=== PATIENT | male | born 1980 | race Caucasian/White ===

== ENCOUNTER 2022-07-02 10:46 | Inpatient (IN) | payer BC, MEDICAID ==
[2022-07-02] VITALS (34 sets, daily range): BP systolic 55–134; BP diastolic 16–101
[~2022-07-02] VITALS: Ht 177.8 cm; Wt 97.1 kg
[2022-07-02] MEDS ORDERED: PIPERACILLIN/TAZ 3.375G PREMIX 50 ML IV ONE (11:00)
[2022-07-02] MEDS ORDERED: ETOMIDATE 2MG/ML 10ML VIAL IV ONE (11:00)
[2022-07-02] MEDS ORDERED: VANCOMYCIN 1G PREMIX 200 ML IV ONE (11:00)
[2022-07-02] MEDS ORDERED: SUCCINYLCHOLINE CHLORIDE 200MG/10ML IV ONE (11:00)
[2022-07-02] MEDS ORDERED: PROPOFOL 10MG/ML 100ML 100 ML IV ONE (11:00)
[2022-07-02 11:12] LABS: HEMATOCRIT. 36.9 % (42.0-52.0); LYMPHOCYTES % 10.4 % (20.0-50.0); MEAN CORPUSCULAR HEMOGLOBIN 26.4 pg (28.0-32.0); MEAN CORPUSCULAR VOLUME 88.4 fL (80.0-94.0); MEAN PLATELET VOLUME 10.5 fl (7.4-10.4); MONOCYTES % 3.3 % (2.0-8.0); NEUTROPHILS % 85.3 % (40.0-76.0); PLATELET 182 x1000/uL (130-400); RED BLOOD CELL COUNT 4.17 mill/uL (4.7-6.1); RED CELL DISTRIBUTION WIDTH 16.9 % (11.6-14.6)
[2022-07-02 11:17] LABS: CHLORIDE 101 mEq/L (98-107)
[2022-07-02 11:26] LABS: INR 1.2; PROTHROMBIN TIME 12.5 sec (9.6-11.0)
[2022-07-02 11:27] LABS: CLARITY URINE CLOUDY (CLEAR); COLOR URINE YELLOW (YELLOW); KETONES URINE 2+ (NEGATIVE); LEUKOCYTE ESTERASE URINE 1+ (NEGATIVE); NITRITE URINE NEGATIVE (NEGATIVE); OCCULT BLOOD URINE 2+ (NEGATIVE); PH URINE 5.5 (4.5-8.0); PROTEIN URINE 3+ (NEGATIVE); SPECIFIC GRAVITY URINE 1.025 (1.005-1.030); UROBILINOGEN URINE 0.2 E.U./dL (0.2-1.0)
[2022-07-02] MEDS ORDERED: SODIUM CHLORIDE 0.9% 1000ML BAG (SEPSIS BOLUS) IV ONE (11:30)
[2022-07-02 11:31] LABS: BG BASE EXCESS -11.9 mmol/L (-2.0-2.0); BG CARBOXYHEMOGLOBIN 0.3 % (0.5-1.5); BG DEOXYHEMOGLOBIN 1.4 % (0.0-5.0); BG METHEMOGLOBIN 0.3 % (0.0-1.5); BG OXYGEN SATURATION 98.6 % (92.0-98.5); BG PCO2 37.6 mmHg (35.0-45.0); BG PH 7.218 (7.350-7.450); BG PO2 175.1 mmHg (75.0-100.0); BG SAMPLE SITE RIGHT RADIAL; BG TOTAL HEMOGLOBIN 11.2 g/dL (12.0-18.0); BG VENT MODE VENT - AC
[2022-07-02] MEDS ORDERED: NOREPINEPHRINE 8MG/250ML PMX 250 ML IV STA ×2 (11:33→11:52)
[2022-07-02] MEDS ORDERED: INSULIN REGULAR 100U/100ML PMX 100 ML IV SCH ×2 (11:45→20:00)
[2022-07-02] MEDS ORDERED: SODIUM BICARBONATE 8.4% 1 MEQ/ML 50ML SYR IV NR (12:15)
[2022-07-02] MEDS: INSULIN REGULAR 100U/100ML PMX 100 ML IV SCH ×4 (13:00→22:04)
[2022-07-02] MEDS ORDERED: NOREPINEPHRINE 8MG/250ML PMX 250 ML IV ONE (14:12)
[2022-07-02] MEDS ORDERED: INSULIN REGULAR (HUMULIN R) 300UNITS/3ML VIAL IV PRN (14:30)
[2022-07-02] MEDS ORDERED: DEXTROSE 50% WATER 50ML SYRINGE IV PRN (14:30)
[2022-07-02] MEDS ORDERED: PIPERACILLIN/TAZ 3.375G PREMIX 50 ML IV NR (15:00)
[2022-07-02] MEDS ORDERED: NOREPINEPHRINE 32 MG in DEXT 5% WATER 218 ML IV PRN (15:00)
[2022-07-02] MEDS ORDERED: PHENYLEPHRINE 100 MG in DEXT 5% WATER 240 ML IV PRN (15:00)
[2022-07-02] MEDS ORDERED: PROPOFOL 10MG/ML 100ML 100 ML IV NR (15:15)
[2022-07-02] MEDS: BLOOD SUGAR DIAGNOSTIC STRIP TEST SCH ×9 (15:30→23:00)
[2022-07-02] MEDS ORDERED: FENTANYL 2500MCG/250ML PMX 250 ML IV ONE (15:45)
[2022-07-02] MEDS ORDERED: VANCOMYCIN 1G PREMIX 200 ML IV SCH (16:00)
[2022-07-02] MEDS: SODIUM CHLORIDE 0.45% 1,000 ML IV SCH ×2 (16:15→18:43)
[2022-07-02 16:19] LABS: TOTAL IRON BINDING CAPACITY 224 ug/dL (250-450)
[2022-07-02] MEDS: PROPOFOL 10MG/ML 100ML 100 ML IV PRN ×2 (16:29→17:57)
[2022-07-02] MEDS: PHENYLEPHRINE 100 MG in DEXT 5% WATER 240 ML IV PRN ×2 (16:30→22:58)
[2022-07-02] MEDS: NOREPINEPHRINE 32 MG in DEXT 5% WATER 218 ML IV PRN (16:31)
[2022-07-02] MEDS: FENTANYL 2500MCG/250ML PMX 250 ML IV PRN (16:35)
[2022-07-02 17:14] LABS: BG BASE EXCESS -10.8 mmol/L (-2.0-2.0); BG CARBOXYHEMOGLOBIN 0.3 % (0.5-1.5); BG DEOXYHEMOGLOBIN 2.7 % (0.0-5.0); BG HCO3 ACT 13.3 mmol/L (22.0-26.0); BG METHEMOGLOBIN 0.4 % (0.0-1.5); BG OXYGEN SATURATION 97.3 % (92.0-98.5); BG OXYHEMOGLOBIN 96.6 % (94.0-97.0); BG PCO2 25.3 mmHg (35.0-45.0); BG PO2 107.9 mmHg (75.0-100.0); BG SAMPLE SITE RIGHT RADIAL; BG TOTAL HEMOGLOBIN 11.4 g/dL (12.0-18.0); BG VENT MODE VENT - AC
[2022-07-02] MEDS ORDERED: DEXTROSE 50% WATER 25ML (12.5GM) IV PRN (17:15)
[2022-07-02] MEDS ORDERED: MAGNESIUM/ALUMINUM HYDROXIDE/SIMETHICONE 30ML UDC PO PRN (17:30)
[2022-07-02] MEDS ORDERED: CLONIDINE 0.1MG TABLET PO PRN (17:30)
[2022-07-02] MEDS ORDERED: GUAIFENESIN 200MG/10ML SUGAR FREE UDC PO PRN (17:30)
[2022-07-02] MEDS ORDERED: HYDROCODONE/ACETAMINOPHEN 5/325MG TABLET PO PRN (17:30)
[2022-07-02] MEDS ORDERED: ACETAMINOPHEN 325MG TABLET PO PRN ×2 (17:30)
[2022-07-02] MEDS: VANCOMYCIN 1GM PMX (XELLIA) 200 ML IV SCH (17:59)
[2022-07-02] MEDS ORDERED: PIPERACILLIN/TAZOBACTAM 3.375 G in DEXTROSE 5% WATER 50 ML IV NR (18:00)
[2022-07-02] MEDS ORDERED: ASPI-1497 MT (18:36)
[2022-07-02] MEDS ORDERED: ATOR40TA70 MT (18:36)
[2022-07-02] MEDS ORDERED: BICT1TAB PO (18:39)
[2022-07-02] MEDS ORDERED: FAMO-135 MT (18:41)
[2022-07-02] MEDS: ENOXAPARIN 40MG/0.4ML SYR SUBCUT SCH (18:43)
[2022-07-02] MEDS ORDERED: METO100T16 PO (18:45)
[2022-07-02] MEDS ORDERED: KEPPSOL GT (18:45)
[2022-07-02] MEDS ORDERED: LISI20TA31 MT (18:45)
[2022-07-02] MEDS ORDERED: SENN-178 MT (18:45)
[2022-07-02 18:57] LABS: CHLORIDE 111 mEq/L (98-107)
[2022-07-02 19:03] LABS: PHOSPHORUS 2.3 mg/dL (2.5-4.9)
[2022-07-02] MEDS ORDERED: ACETAMINOPHEN 650MG SUPP PR PRN (19:15)
[2022-07-02] MEDS ORDERED: ACETAMINOPHEN 650MG/20.3ML UDC GT PRN (19:45)
[2022-07-02] MEDS ORDERED: POTASSIUM CHLORIDE INJ 40 MEQ in DEXT 5% WATER 250 ML IV NR (20:30)
[2022-07-02] MEDS: SODIUM CHL 0.45% + KCL 20MEQ/L 1,000 ML IV SCH (21:10)
[2022-07-02] MEDS ORDERED: PIPERACILLIN/TAZOBACTAM 3.375 G in DEXTROSE 5% WATER 50 ML IV SCH (22:00)
[2022-07-02] MEDS: PANTOPRAZOLE 40MG DR TABLET PO SCH (22:03)
[2022-07-02 22:17] LABS: CHLORIDE 112 mEq/L (98-107)
[2022-07-02 22:20] LABS: PHOSPHORUS 1.9 mg/dL (2.5-4.9)
[2022-07-02] MEDS: PIPERACILLIN/TAZOBACTAM 3.375 G in DEXTROSE 5% WATER 50 ML IV SCH (22:58)
[2022-07-02] MEDS: ONDANSETRON HCL 4MG/2ML INJ IV PRN (23:06)
[2022-07-02] MEDS ORDERED: MAGNESIUM 2 G PREMIX 50 ML IV NR (23:59)
[2022-07-03] VITALS (104 sets, daily range): BP systolic 65–201; BP diastolic 38–121
[2022-07-03] MEDS: BLOOD SUGAR DIAGNOSTIC STRIP TEST SCH ×23 (01:00→23:30)
[2022-07-03] MEDS: VANCOMYCIN 1GM PMX (XELLIA) 200 ML IV SCH ×2 (01:22→08:18)
[2022-07-03] MEDS: ACETAMINOPHEN 650MG/20.3ML UDC GT PRN ×4 (01:22→22:01)
[2022-07-03] MEDS: NOREPINEPHRINE 32 MG in DEXT 5% WATER 218 ML IV PRN ×3 (01:47→19:13)
[2022-07-03] MEDS: INSULIN REGULAR 100U/100ML PMX 100 ML IV SCH ×5 (02:01→20:25)
[2022-07-03] MEDS: KCL 20MEQ/100ML PREMIX 100 ML IV PRN ×3 (03:20→22:38)
[2022-07-03] MEDS: PROPOFOL 10MG/ML 100ML 100 ML IV PRN ×2 (05:56→14:03)
[2022-07-03] MEDS: PIPERACILLIN/TAZOBACTAM 3.375 G in DEXTROSE 5% WATER 50 ML IV SCH ×3 (05:57→21:28)
[2022-07-03 06:02] LABS: BASOPHILS % 0.2 % (0.0-2.0); HEMATOCRIT. 34.4 % (42.0-52.0); HEMOGLOBIN. 10.7 g/dL (14.0-18.0); LYMPHOCYTES % 11.7 % (20.0-50.0); MEAN CORPUSCULAR HEMOGLOBIN 27.1 pg (28.0-32.0); MEAN CORPUSCULAR VOLUME 87.2 fL (80.0-94.0); MEAN PLATELET VOLUME 10.8 fl (7.4-10.4); MONOCYTES % 4.4 % (2.0-8.0); NEUTROPHILS % 83.7 % (40.0-76.0); PLATELET 105 x1000/uL (130-400); RED BLOOD CELL COUNT 3.94 mill/uL (4.7-6.1); RED CELL DISTRIBUTION WIDTH 16.3 % (11.6-14.6)
[2022-07-03] MEDS: PHENYLEPHRINE 100 MG in DEXT 5% WATER 240 ML IV PRN ×4 (06:33→19:31)
[2022-07-03] MEDS: PANTOPRAZOLE 40MG DR TABLET PO SCH ×2 (06:49→21:28)
[2022-07-03] MEDS: ONDANSETRON HCL 4MG/2ML INJ IV PRN (06:49)
[2022-07-03] MEDS: DEXT 5%/0.45% NACL 1000ML 1,000 ML IV SCH ×4 (06:50→20:25)
[2022-07-03 06:53] LABS: PHOSPHORUS 3.3 mg/dL (2.5-4.9)
[2022-07-03] MEDS ORDERED: POTASSIUM CHLORIDE 20MEQ TABLET SR PO ONE (08:30)
[2022-07-03] MEDS ORDERED: VASOPRESSIN 20 UNIT in SODIUM CHLORIDE 0.9% 99 ML IV PRN (08:30)
[2022-07-03 08:58] LABS: BG BASE EXCESS -14.4 mmol/L (-2.0-2.0); BG CARBOXYHEMOGLOBIN 0.2 % (0.5-1.5); BG DEOXYHEMOGLOBIN 1.4 % (0.0-5.0); BG FRACTION INSPIRED OXYGEN 80; BG HCO3 ACT 11.1 mmol/L (22.0-26.0); BG METHEMOGLOBIN 0.6 % (0.0-1.5); BG OXYGEN SATURATION 98.6 % (92.0-98.5); BG OXYHEMOGLOBIN 97.8 % (94.0-97.0); BG PCO2 25.6 mmHg (35.0-45.0); BG PH 7.256 (7.350-7.450); BG PO2 180.1 mmHg (75.0-100.0); BG SAMPLE SITE RIGHT RADIAL; BG TOTAL HEMOGLOBIN 11.2 g/dL (12.0-18.0); BG VENT MODE VENT - AC
[2022-07-03] MEDS ORDERED: POTASSIUM CHLORIDE 20MEQ/PACKET PEG NR (09:00)
[2022-07-03] MEDS: IPRATROPIUM/ALBUTEROL 0.5-3(2.5)MG/3ML NEB NEB PRN (09:26)
[2022-07-03] MEDS ORDERED: SODIUM BICARBONATE 8.4% 1 MEQ/ML 50ML SYR IV SCH (11:00)
[2022-07-03] MEDS: SODIUM CHL 0.45% + KCL 20MEQ/L 1,000 ML IV SCH ×5 (14:01→22:02)
[2022-07-03] MEDS: ENOXAPARIN 40MG/0.4ML SYR SUBCUT SCH (17:28)
[2022-07-03] MEDS ORDERED: MAGNESIUM 1 G PREMIX 100 ML IV NR (20:00)
[2022-07-03] MEDS: FENTANYL 2500MCG/250ML PMX 250 ML IV PRN (20:26)
[2022-07-04] VITALS (97 sets, daily range): BP systolic 81–171; BP diastolic 46–108
[2022-07-04] MEDS: BLOOD SUGAR DIAGNOSTIC STRIP TEST SCH ×16 (00:30→21:23)
[2022-07-04] MEDS: PROPOFOL 10MG/ML 100ML 100 ML IV PRN ×4 (00:55→23:50)
[2022-07-04] MEDS: PHENYLEPHRINE 100 MG in DEXT 5% WATER 240 ML IV PRN ×5 (02:38→23:03)
[2022-07-04 04:33] LABS: HEMATOCRIT. 26.8 % (42.0-52.0); HEMOGLOBIN. 8.6 g/dL (14.0-18.0); MEAN CORPUSCULAR VOLUME 83.9 fL (80.0-94.0); MEAN PLATELET VOLUME 10.7 fl (7.4-10.4); PLATELET 74 x1000/uL (130-400); RED CELL DISTRIBUTION WIDTH 16.1 % (11.6-14.6)
[2022-07-04] MEDS: INSULIN REGULAR 100U/100ML PMX 100 ML IV SCH (06:43)
[2022-07-04] MEDS: PIPERACILLIN/TAZOBACTAM 3.375 G in DEXTROSE 5% WATER 50 ML IV SCH ×2 (06:43→14:17)
[2022-07-04] MEDS: PANTOPRAZOLE 40MG DR TABLET PO SCH ×2 (06:44→21:21)
[2022-07-04] MEDS: DEXT 5%/0.45% NACL 1000ML 1,000 ML IV SCH (06:44)
[2022-07-04 07:41] LABS: BG BASE EXCESS -13.7 mmol/L (-2.0-2.0); BG CARBOXYHEMOGLOBIN 0.3 % (0.5-1.5); BG DEOXYHEMOGLOBIN 1.5 % (0.0-5.0); BG HCO3 ACT 11.1 mmol/L (22.0-26.0); BG METHEMOGLOBIN 0.2 % (0.0-1.5); BG OXYGEN SATURATION 98.5 % (92.0-98.5); BG PCO2 23.3 mmHg (35.0-45.0); BG PH 7.296 (7.350-7.450); BG PO2 143.1 mmHg (75.0-100.0); BG SAMPLE SITE RIGHT RADIAL; BG TOTAL RESPIRATORY RATE 32.02 b/min; BG VENT MODE VENT - AC
[2022-07-04 07:54] LABS: PLATELET ESTIMATE DECREASED
[2022-07-04] MEDS: SODIUM CHL 0.45% + KCL 20MEQ/L 1,000 ML IV SCH ×4 (08:19→18:29)
[2022-07-04] MEDS ORDERED: MIDAZOLAM HCL 5 MG/ML VIAL IV PRN (09:00)
[2022-07-04 10:07] LABS: ABSOLUTE LYMPHOCYTES 1.4 x10E3/uL (0.7-3.1); ABSOLUTE MONOCYTES 0.5 x10E3/uL (0.1-0.9); ABSOLUTE NEUTROPHILS 12.7 x10E3/uL (1.4-7.0); BASOPHILS 0 % (Not Estab.); HEMATOCRIT 30.5 % (37.5-51.0); HEMATOLOGY COMMENT Note: (.); HEMOGLOBIN 9.4 g/dL (13.0-17.7); IMMATURE GRANULOCYTES 1 % (Not Estab.); IMMATURE GRANULOCYTES ABSOLUTE 0.2 x10E3/uL (0.0-0.1); LYMPHOCYTES 9 % (Not Estab.); MEAN CORPUSCULAR HEMOGLOBIN 26.9 pg (26.6-33.0); MEAN CORPUSCULAR HGB CONC. 30.8 g/dL (31.5-35.7); MEAN CORPUSCULAR VOLUME 87 fL (79-97); MONOCYTES 4 % (Not Estab.); NEUTROPHILS 86 % (Not Estab.); NUCLEATED RBC 1 % (0 - 0); PLATELETS 89 x10E3/uL (150-450); RBC 3.49 x10E6/uL (4.14-5.80); RED CELL DISTRIBUTION WIDTH 14.4 % (11.6-15.4); WBC 14.8 x10E3/uL (3.4-10.8)
[2022-07-04] MEDS ORDERED: MAGNESIUM 1 G PREMIX 100 ML IV NR (10:30)
[2022-07-04 13:10] LABS: % CD 3 POS. LYMPHOCYTES 63.9 % (57.5-86.2); % CD 4 POS. LYMPHOCYTES 29.7 % (30.8-58.5); % CD 8 POS. LYMPH 33.5 % (12.0-35.5); ABSOLUTE CD 3 895 /uL (622-2402); ABSOLUTE CD 4 HELPER 416 /uL (359-1519); ABSOLUTE CD 8 SUPPRESSOR 469 /uL (109-897); CD4/CD8 RATIO 0.89 (0.92-3.72)
[2022-07-04] MEDS ORDERED: DEXTROSE 50% WATER 50ML SYRINGE IV PRN (14:15)
[2022-07-04] MEDS: MIDODRINE HCL 5MG TABLET PO SCH ×2 (14:18→21:22)
[2022-07-04] MEDS: INSULIN LISPRO 100 UNITS/ML SUBCUT SCH ×3 (14:42→21:23)
[2022-07-04] MEDS: NOREPINEPHRINE 32 MG in DEXT 5% WATER 218 ML IV PRN (18:31)
[2022-07-04] MEDS: FENTANYL 2500MCG/250ML PMX 250 ML IV PRN ×2 (19:47→21:46)
[2022-07-04] MEDS: MEROPENEM 1,000 MG in SODIUM CHLORIDE 0.9% 100 ML IV SCH (20:47)
[2022-07-04] MEDS ORDERED: INSULIN GLARGINE 100 UNITS/ML SUBCUT SCH (22:00)
[2022-07-05] VITALS (96 sets, daily range): BP systolic 90–147; BP diastolic 48–104
[2022-07-05] MEDS: BLOOD SUGAR DIAGNOSTIC STRIP TEST SCH ×14 (02:29→21:00)
[2022-07-05] MEDS: INSULIN LISPRO 100 UNITS/ML SUBCUT SCH ×5 (02:37→21:37)
[2022-07-05] MEDS: NOREPINEPHRINE 32 MG in DEXT 5% WATER 218 ML IV PRN (03:20)
[2022-07-05] MEDS: PROPOFOL 10MG/ML 100ML 100 ML IV PRN ×3 (03:54→13:46)
[2022-07-05] MEDS: MIDODRINE HCL 5MG TABLET PO SCH ×3 (05:13→21:25)
[2022-07-05] MEDS: MEROPENEM 1,000 MG in SODIUM CHLORIDE 0.9% 100 ML IV SCH ×3 (05:14→21:24)
[2022-07-05 05:57] LABS: HEMATOCRIT. 24.9 % (42.0-52.0); HEMOGLOBIN. 8.1 g/dL (14.0-18.0); MEAN CORPUSCULAR HEMOGLOBIN 26.8 pg (28.0-32.0); MEAN CORPUSCULAR VOLUME 82.7 fL (80.0-94.0); MEAN PLATELET VOLUME 10.7 fl (7.4-10.4); PLATELET 77 x1000/uL (130-400); RED BLOOD CELL COUNT 3.01 mill/uL (4.7-6.1); RED CELL DISTRIBUTION WIDTH 16.6 % (11.6-14.6)
[2022-07-05 06:07] LABS: D-DIMER 1.88 mg/L FEU (<0.50); PROTHROMBIN TIME 10.5 sec (9.6-11.0)
[2022-07-05] MEDS: PHENYLEPHRINE 100 MG in DEXT 5% WATER 240 ML IV PRN ×2 (07:00→15:48)
[2022-07-05 07:55] LABS: BG CARBOXYHEMOGLOBIN 0.3 % (0.5-1.5); BG DEOXYHEMOGLOBIN 0.9 % (0.0-5.0); BG HCO3 ACT 11.7 mmol/L (22.0-26.0); BG METHEMOGLOBIN 0.3 % (0.0-1.5); BG OXYGEN SATURATION 99.1 % (92.0-98.5); BG OXYHEMOGLOBIN 98.5 % (94.0-97.0); BG PCO2 21.1 mmHg (35.0-45.0); BG PH 7.363 (7.350-7.450); BG PO2 166.4 mmHg (75.0-100.0); BG SAMPLE SITE RIGHT RADIAL; BG TOTAL HEMOGLOBIN 9.8 g/dL (12.0-18.0); BG VENT MODE VENT - AC
[2022-07-05] MEDS ORDERED: SODIUM CHL 0.45% + KCL 20MEQ/L 1,000 ML IV SCH (08:00)
[2022-07-05 08:21] LABS: PLATELET ESTIMATE DECREASED
[2022-07-05] MEDS: DOCUSATE SODIUM SUGAR FREE 100MG/10ML UDC NG SCH (09:30)
[2022-07-05] MEDS: PANTOPRAZOLE 40MG DR TABLET PO SCH ×2 (09:30→21:22)
[2022-07-05] MEDS: FENTANYL 2500MCG/250ML PMX 250 ML IV PRN (11:21)
[2022-07-05] MEDS ORDERED: SODIUM BICARBONATE 8.4% 1 MEQ/ML 50ML SYR IV SCH (12:00)
[2022-07-05] MEDS ORDERED: INSULIN REGULAR (DRIP) 100 UNITS in SODIUM CHLORIDE 0.9% 99 ML IV ONE (12:15)
[2022-07-05] MEDS ORDERED: DEXTROSE 50% WATER 50ML SYRINGE IV PRN ×3 (12:30→14:45)
[2022-07-05] MEDS ORDERED: INSULIN REGULAR (HUMULIN R) 300UNITS/3ML VIAL IV PRN (12:30)
[2022-07-05] MEDS ORDERED: INSULIN REGULAR 100U/100ML PMX 100 ML IV SCH ×3 (12:30→14:45)
[2022-07-05] MEDS: MIDAZOLAM HCL 100 MG in SODIUM CHLORIDE 0.9% 80 ML IV PRN (12:45)
[2022-07-05] MEDS ORDERED: SODIUM BICARBONATE 150 MEQ in DEXTROSE 5% WATER 1,000 ML IV SCH (13:00)
[2022-07-05] MEDS ORDERED: BLOOD SUGAR DIAGNOSTIC STRIP TEST SCH (14:45)
[2022-07-05] MEDS: INSULIN GLARGINE 100 UNITS/ML SUBCUT SCH (21:38)
[2022-07-06] VITALS (97 sets, daily range): BP systolic 94–140; BP diastolic 39–95
[2022-07-06] MEDS: MIDAZOLAM HCL 100 MG in SODIUM CHLORIDE 0.9% 80 ML IV PRN ×2 (03:32→12:24)
[2022-07-06] MEDS: PHENYLEPHRINE 100 MG in DEXT 5% WATER 240 ML IV PRN (03:59)
[2022-07-06] MEDS: BLOOD SUGAR DIAGNOSTIC STRIP TEST SCH ×3 (04:00→17:54)
[2022-07-06] MEDS: INSULIN LISPRO 100 UNITS/ML SUBCUT SCH ×7 (04:00→18:33)
[2022-07-06 05:06] LABS: PHOSPHORUS 3.2 mg/dL (2.5-4.9)
[2022-07-06 05:21] LABS: HEMATOCRIT. 21.9 % (42.0-52.0); HEMOGLOBIN. 7.3 g/dL (14.0-18.0); MEAN CORPUSCULAR HEMOGLOBIN 26.9 pg (28.0-32.0); MEAN CORPUSCULAR VOLUME 80.7 fL (80.0-94.0); MEAN PLATELET VOLUME 9.6 fl (7.4-10.4); PLATELET 100 x1000/uL (130-400); RED BLOOD CELL COUNT 2.71 mill/uL (4.7-6.1); RED CELL DISTRIBUTION WIDTH 16.8 % (11.6-14.6)
[2022-07-06 05:34] LABS: PARTIAL THROMBOPLASTIN TIME 28.9 sec (23.4-31.0); PROTHROMBIN TIME 10.3 sec (9.6-11.0)
[2022-07-06] MEDS: PANTOPRAZOLE 40MG DR TABLET PO SCH ×2 (06:18→21:03)
[2022-07-06] MEDS: MEROPENEM 1,000 MG in SODIUM CHLORIDE 0.9% 100 ML IV SCH ×3 (06:18→21:03)
[2022-07-06] MEDS: MIDODRINE HCL 5MG TABLET PO SCH ×3 (06:19→21:03)
[2022-07-06 07:12] LABS: PLATELET ESTIMATE DECREASED
[2022-07-06] MEDS: IPRATROPIUM/ALBUTEROL 0.5-3(2.5)MG/3ML NEB NEB PRN (08:11)
[2022-07-06] MEDS ORDERED: POTASSIUM CHLORIDE 20MEQ/PACKET PO NR (08:30)
[2022-07-06] MEDS: DOCUSATE SODIUM SUGAR FREE 100MG/10ML UDC NG SCH (08:43)
[2022-07-06 08:50] LABS: BG BASE EXCESS -4.5 mmol/L (-2.0-2.0); BG CARBOXYHEMOGLOBIN 0.1 % (0.5-1.5); BG DEOXYHEMOGLOBIN 1.2 % (0.0-5.0); BG FRACTION INSPIRED OXYGEN 35; BG HCO3 ACT 18.3 mmol/L (22.0-26.0); BG METHEMOGLOBIN 0.6 % (0.0-1.5); BG OXYGEN SATURATION 98.8 % (92.0-98.5); BG OXYHEMOGLOBIN 98.1 % (94.0-97.0); BG PCO2 24.9 mmHg (35.0-45.0); BG PH 7.483 (7.350-7.450); BG PO2 147.5 mmHg (75.0-100.0); BG SAMPLE SITE RIGHT RADIAL; BG TOTAL HEMOGLOBIN 7.6 g/dL (12.0-18.0); BG VENT MODE VENT - AC
[2022-07-06] MEDS ORDERED: LIDOCAINE HCL/PF 1% 10 MG/ML 5ML VIAL ONE (10:09)
[2022-07-06 11:39] LABS: TOTAL IRON BINDING CAPACITY 114 ug/dL (250-450)
[2022-07-06 13:10] LABS: HEMOGLOBIN 7.3 g/dL (14.0-18.0); MEAN CORPUSCULAR HEMOGLOBIN 27.4 pg (28.0-32.0); MEAN CORPUSCULAR VOLUME 82.2 fL (80.0-94.0); PLATELET 90 x1000/uL (130-400); RED BLOOD CELL COUNT 2.67 mill/uL (4.7-6.1); RED CELL DISTRIBUTION WIDTH 16.4 % (11.6-14.6)
[2022-07-06] MEDS: FENTANYL 2500MCG/250ML PMX 250 ML IV PRN (14:42)
[2022-07-06] MEDS: ENOXAPARIN 40MG/0.4ML SYR SUBCUT SCH (17:54)
[2022-07-06] MEDS ORDERED: INSULIN LISPRO 100 UNITS/ML SUBCUT SCH (18:00)
[2022-07-06] MEDS: INSULIN GLARGINE 100 UNITS/ML SUBCUT SCH (21:08)
[2022-07-06 23:25] LABS: HEMATOCRIT 23.5 % (42.0-52.0); HEMOGLOBIN 7.6 g/dL (14.0-18.0)
[2022-07-07] VITALS (48 sets, daily range): BP systolic 94–135; BP diastolic 56–88
[2022-07-07] MEDS: BLOOD SUGAR DIAGNOSTIC STRIP TEST SCH ×5 (00:30→23:42)
[2022-07-07 04:31] LABS: HEMATOCRIT. 22.1 % (42.0-52.0); HEMOGLOBIN. 7.4 g/dL (14.0-18.0); MEAN CORPUSCULAR HEMOGLOBIN 27.1 pg (28.0-32.0); MEAN CORPUSCULAR VOLUME 81.5 fL (80.0-94.0); MEAN PLATELET VOLUME 9.5 fl (7.4-10.4); PLATELET 102 x1000/uL (130-400); RED BLOOD CELL COUNT 2.72 mill/uL (4.7-6.1); RED CELL DISTRIBUTION WIDTH 16.5 % (11.6-14.6)
[2022-07-07 04:49] LABS: CHLORIDE 113 mEq/L (98-107)
[2022-07-07 04:58] LABS: PHOSPHORUS 3.8 mg/dL (2.5-4.9)
[2022-07-07] MEDS: INSULIN LISPRO 100 UNITS/ML SUBCUT SCH ×10 (06:00→23:42)
[2022-07-07] MEDS: MIDODRINE HCL 5MG TABLET PO SCH ×3 (06:03→21:09)
[2022-07-07] MEDS: PANTOPRAZOLE 40MG DR TABLET PO SCH ×2 (06:03→21:10)
[2022-07-07] MEDS: MEROPENEM 1,000 MG in SODIUM CHLORIDE 0.9% 100 ML IV SCH ×3 (06:03→21:09)
[2022-07-07 07:31] LABS: BG BASE EXCESS -5.8 mmol/L (-2.0-2.0); BG HCO3 ACT 17.6 mmol/L (22.0-26.0); BG METHEMOGLOBIN 0.6 % (0.0-1.5); BG OXYHEMOGLOBIN 92.4 % (94.0-97.0); BG PCO2 26.7 mmHg (35.0-45.0); BG PH 7.436 (7.350-7.450); BG PO2 69.9 mmHg (75.0-100.0); BG SAMPLE SITE RIGHT RADIAL; BG TOTAL HEMOGLOBIN 7.8 g/dL (12.0-18.0); BG VENT MODE VENT - AC
[2022-07-07 07:44] LABS: PLATELET ESTIMATE SLIGHTLY DECREASED
[2022-07-07] MEDS: DOCUSATE SODIUM SUGAR FREE 100MG/10ML UDC NG SCH (08:22)
[2022-07-07] MEDS: BIKTARVY 50-200-25MG TABLET PO SCH (09:26)
[2022-07-07] MEDS: IPRATROPIUM/ALBUTEROL 0.5-3(2.5)MG/3ML NEB HHN SCH ×4 (11:36→23:45)
[2022-07-07] MEDS: MIDAZOLAM HCL 100 MG in SODIUM CHLORIDE 0.9% 80 ML IV PRN (12:39)
[2022-07-07] MEDS: FENTANYL 2500MCG/250ML PMX 250 ML IV PRN (12:40)
[2022-07-07] MEDS: ACETYLCYSTEINE 100MG/ML 10% VIAL 4ML INH SCH ×2 (15:54→23:45)
[2022-07-07] MEDS: ENOXAPARIN 40MG/0.4ML SYR SUBCUT SCH (18:21)
[2022-07-07] MEDS: INSULIN GLARGINE 100 UNITS/ML SUBCUT SCH (21:11)
[2022-07-08] VITALS (56 sets, daily range): BP systolic 95–179; BP diastolic 50–128
[2022-07-08] MEDS: ACETYLCYSTEINE 100MG/ML 10% VIAL 4ML INH SCH ×3 (01:43→16:38)
[2022-07-08] MEDS: IPRATROPIUM/ALBUTEROL 0.5-3(2.5)MG/3ML NEB HHN SCH ×5 (03:55→21:28)
[2022-07-08] MEDS: MIDAZOLAM HCL 100 MG in SODIUM CHLORIDE 0.9% 80 ML IV PRN (05:16)
[2022-07-08] MEDS: MEROPENEM 1,000 MG in SODIUM CHLORIDE 0.9% 100 ML IV SCH ×3 (05:17→21:22)
[2022-07-08] MEDS: FENTANYL 2500MCG/250ML PMX 250 ML IV PRN (05:17)
[2022-07-08] MEDS: MIDODRINE HCL 5MG TABLET PO SCH ×3 (05:19→21:22)
[2022-07-08] MEDS: PANTOPRAZOLE 40MG DR TABLET PO SCH ×2 (05:20→21:23)
[2022-07-08 05:48] LABS: BASOPHILS % 0.6 % (0.0-2.0); EOSINOPHILS % 0.8 % (0.0-5.0); HEMATOCRIT. 22.9 % (42.0-52.0); HEMOGLOBIN. 7.3 g/dL (14.0-18.0); LYMPHOCYTES % 9.9 % (20.0-50.0); MEAN CORPUSCULAR HEMOGLOBIN 27.2 pg (28.0-32.0); MEAN CORPUSCULAR VOLUME 85.2 fL (80.0-94.0); MEAN PLATELET VOLUME 9.3 fl (7.4-10.4); MONOCYTES % 14.3 % (2.0-8.0); NEUTROPHILS % 74.4 % (40.0-76.0); PLATELET 160 x1000/uL (130-400); RED BLOOD CELL COUNT 2.68 mill/uL (4.7-6.1); RED CELL DISTRIBUTION WIDTH 16.8 % (11.6-14.6)
[2022-07-08] MEDS: INSULIN LISPRO 100 UNITS/ML SUBCUT SCH ×8 (06:00→23:53)
[2022-07-08] MEDS: BLOOD SUGAR DIAGNOSTIC STRIP TEST SCH ×4 (06:09→23:53)
[2022-07-08 06:48] LABS: CHLORIDE 115 mEq/L (98-107)
[2022-07-08] MEDS: DOCUSATE SODIUM SUGAR FREE 100MG/10ML UDC NG SCH (08:22)
[2022-07-08] MEDS: BIKTARVY 50-200-25MG TABLET PO SCH (08:28)
[2022-07-08 08:41] LABS: BG BASE EXCESS -6.7 mmol/L (-2.0-2.0); BG CARBOXYHEMOGLOBIN 0.2 % (0.5-1.5); BG DEOXYHEMOGLOBIN 1.1 % (0.0-5.0); BG FRACTION INSPIRED OXYGEN 35; BG HCO3 ACT 17.8 mmol/L (22.0-26.0); BG METHEMOGLOBIN 0.3 % (0.0-1.5); BG OXYGEN SATURATION 98.9 % (92.0-98.5); BG OXYHEMOGLOBIN 98.4 % (94.0-97.0); BG PCO2 31.3 mmHg (35.0-45.0); BG PH 7.372 (7.350-7.450); BG PO2 138.4 mmHg (75.0-100.0); BG SAMPLE SITE LEFT RADIAL; BG TOTAL HEMOGLOBIN 7.7 g/dL (12.0-18.0); BG VENT MODE VENT - AC
[2022-07-08 14:04] LABS: BG BASE EXCESS -5.3 mmol/L (-2.0-2.0); BG CARBOXYHEMOGLOBIN 0.2 % (0.5-1.5); BG FRACTION INSPIRED OXYGEN 35; BG HCO3 ACT 18.9 mmol/L (22.0-26.0); BG METHEMOGLOBIN 0.6 % (0.0-1.5); BG OXYHEMOGLOBIN 97.2 % (94.0-97.0); BG PCO2 30.8 mmHg (35.0-45.0); BG PH 7.406 (7.350-7.450); BG PO2 114.8 mmHg (75.0-100.0); BG SAMPLE SITE RIGHT RADIAL; BG TOTAL HEMOGLOBIN 6.5 g/dL (12.0-18.0); BG VENT MODE VENT - CPAP
[2022-07-08] MEDS: ENOXAPARIN 40MG/0.4ML SYR SUBCUT SCH (17:39)
[2022-07-08] MEDS: INSULIN GLARGINE 100 UNITS/ML SUBCUT SCH (21:21)
[2022-07-09] VITALS (49 sets, daily range): BP systolic 118–187; BP diastolic 68–119
[2022-07-09] MEDS: IPRATROPIUM/ALBUTEROL 0.5-3(2.5)MG/3ML NEB HHN SCH ×5 (01:43→21:04)
[2022-07-09 05:38] LABS: MEAN CORPUSCULAR HEMOGLOBIN 27.3 pg (28.0-32.0); MEAN CORPUSCULAR VOLUME 87.3 fL (80.0-94.0); MEAN PLATELET VOLUME 8.8 fl (7.4-10.4); PLATELET 214 x1000/uL (130-400); RED BLOOD CELL COUNT 2.34 mill/uL (4.7-6.1); RED CELL DISTRIBUTION WIDTH 17.4 % (11.6-14.6)
[2022-07-09] MEDS: INSULIN LISPRO 100 UNITS/ML SUBCUT SCH ×7 (06:00→23:56)
[2022-07-09] MEDS: MIDODRINE HCL 5MG TABLET PO SCH (06:00)
[2022-07-09] MEDS: BLOOD SUGAR DIAGNOSTIC STRIP TEST SCH ×3 (06:06→17:54)
[2022-07-09] MEDS: MEROPENEM 1,000 MG in SODIUM CHLORIDE 0.9% 100 ML IV SCH ×3 (06:12→21:15)
[2022-07-09] MEDS: PANTOPRAZOLE 40MG DR TABLET PO SCH ×2 (06:13→21:18)
[2022-07-09 06:22] LABS: HEMOGLOBIN. 6.4 g/dL (14.0-18.0)
[2022-07-09 06:23] LABS: HEMATOCRIT. 20.5 % (42.0-52.0)
[2022-07-09 07:09] LABS: CHLORIDE 116 mEq/L (98-107); PHOSPHORUS 5.5 mg/dL (2.5-4.9)
[2022-07-09 07:18] LABS: PLATELET ESTIMATE NORMAL
[2022-07-09] MEDS: BIKTARVY 50-200-25MG TABLET PO SCH (08:16)
[2022-07-09] MEDS: ACETAMINOPHEN 650MG/20.3ML UDC GT PRN (08:16)
[2022-07-09] MEDS: DOCUSATE SODIUM SUGAR FREE 100MG/10ML UDC NG SCH (08:16)
[2022-07-09] MEDS ORDERED: MIDODRINE HCL 5MG TABLET PO SCH (08:30)
[2022-07-09 10:13] LABS: BG BASE EXCESS -2.8 mmol/L (-2.0-2.0); BG CARBOXYHEMOGLOBIN 0.3 % (0.5-1.5); BG DEOXYHEMOGLOBIN 1.5 % (0.0-5.0); BG FRACTION INSPIRED OXYGEN 35; BG METHEMOGLOBIN 0.3 % (0.0-1.5); BG OXYGEN SATURATION 98.5 % (92.0-98.5); BG OXYHEMOGLOBIN 97.9 % (94.0-97.0); BG PCO2 27.4 mmHg (35.0-45.0); BG PH 7.481 (7.350-7.450); BG PO2 131.6 mmHg (75.0-100.0); BG SAMPLE SITE LEFT RADIAL; BG TOTAL HEMOGLOBIN 8.4 g/dL (12.0-18.0); BG VENT MODE VENT - AC
[2022-07-09 14:10] LABS: BG BASE EXCESS -2.6 mmol/L (-2.0-2.0); BG CARBOXYHEMOGLOBIN 0.3 % (0.5-1.5); BG DEOXYHEMOGLOBIN 1.6 % (0.0-5.0); BG FRACTION INSPIRED OXYGEN 35; BG HCO3 ACT 21.2 mmol/L (22.0-26.0); BG METHEMOGLOBIN 0.2 % (0.0-1.5); BG OXYGEN SATURATION 98.4 % (92.0-98.5); BG OXYHEMOGLOBIN 97.9 % (94.0-97.0); BG PCO2 33.4 mmHg (35.0-45.0); BG PH 7.421 (7.350-7.450); BG PO2 136.4 mmHg (75.0-100.0); BG SAMPLE SITE RIGHT RADIAL; BG VENT MODE VENT - CPAP
[2022-07-09] MEDS ORDERED: CLONIDINE 0.1MG TABLET PO NR (14:45)
[2022-07-09] MEDS ORDERED: METOPROLOL TARTRATE 25MG TABLET PO NR (15:15)
[2022-07-09] MEDS: HYDRALAZINE 20MG/ML VIAL IV PRN ×2 (15:18→23:57)
[2022-07-09] MEDS ORDERED: MORPHINE SULFATE 2 MG/ML CPJ (NOT FOR IM USE) IV PRN (15:45)
[2022-07-09] MEDS ORDERED: NALOXONE HCL 0.4MG/ML VIAL IV PRN (15:45)
[2022-07-09] MEDS: ACETYLCYSTEINE 100MG/ML 10% VIAL 4ML INH SCH (16:25)
[2022-07-09 17:36] LABS: HEMOGLOBIN 8.3 g/dL (14.0-18.0)
[2022-07-09 17:48] LABS: PROTHROMBIN TIME 10.6 sec (9.6-11.0)
[2022-07-09] MEDS: ENOXAPARIN 40MG/0.4ML SYR SUBCUT SCH (17:55)
[2022-07-09] MEDS ORDERED: METOPROLOL TARTRATE 25MG TABLET PO SCH (21:00)
[2022-07-09] MEDS: INSULIN GLARGINE 100 UNITS/ML SUBCUT SCH (21:15)
[2022-07-09] MEDS: METOPROLOL TARTRATE 25MG TABLET PO SCH (21:17)
[2022-07-10] VITALS (46 sets, daily range): BP systolic 133–187; BP diastolic 77–114
[2022-07-10] MEDS: BLOOD SUGAR DIAGNOSTIC STRIP TEST SCH ×5 (00:36→23:42)
[2022-07-10] MEDS: ACETYLCYSTEINE 100MG/ML 10% VIAL 4ML INH SCH ×3 (00:50→16:14)
[2022-07-10] MEDS: IPRATROPIUM/ALBUTEROL 0.5-3(2.5)MG/3ML NEB HHN SCH ×6 (00:50→20:03)
[2022-07-10] MEDS: MORPHINE SULFATE 2 MG/ML CPJ (NOT FOR IM USE) IV PRN (01:33)
[2022-07-10] MEDS: INSULIN LISPRO 100 UNITS/ML SUBCUT SCH ×9 (05:53→23:52)
[2022-07-10] MEDS: MEROPENEM 1,000 MG in SODIUM CHLORIDE 0.9% 100 ML IV SCH ×3 (05:53→21:10)
[2022-07-10] MEDS: PANTOPRAZOLE 40MG DR TABLET PO SCH ×2 (05:55→21:10)
[2022-07-10] MEDS: HYDRALAZINE 20MG/ML VIAL IV PRN ×3 (05:55→23:51)
[2022-07-10 05:58] LABS: BASOPHILS % 0.5 % (0.0-2.0); EOSINOPHILS % 0.6 % (0.0-5.0); HEMATOCRIT. 27.2 % (42.0-52.0); HEMOGLOBIN. 9.1 g/dL (14.0-18.0); LYMPHOCYTES % 9.5 % (20.0-50.0); MEAN CORPUSCULAR HEMOGLOBIN 28.4 pg (28.0-32.0); MEAN CORPUSCULAR VOLUME 84.9 fL (80.0-94.0); MEAN PLATELET VOLUME 7.7 fl (7.4-10.4); NEUTROPHILS % 78.4 % (40.0-76.0); PLATELET 286 x1000/uL (130-400); RED CELL DISTRIBUTION WIDTH 17.3 % (11.6-14.6)
[2022-07-10 07:17] LABS: PHOSPHORUS 4.9 mg/dL (2.5-4.9)
[2022-07-10] MEDS: FOLIC ACID/VITAMIN B COMP W-C TABLET PO SCH (08:05)
[2022-07-10] MEDS: DOCUSATE SODIUM SUGAR FREE 100MG/10ML UDC NG SCH (08:05)
[2022-07-10] MEDS: METOPROLOL TARTRATE 25MG TABLET PO SCH (08:06)
[2022-07-10] MEDS: BIKTARVY 50-200-25MG TABLET PO SCH (08:06)
[2022-07-10 08:09] LABS: BG BASE EXCESS -4.7 mmol/L (-2.0-2.0); BG CARBOXYHEMOGLOBIN 0.2 % (0.5-1.5); BG DEOXYHEMOGLOBIN 1.6 % (0.0-5.0); BG HCO3 ACT 18.1 mmol/L (22.0-26.0); BG METHEMOGLOBIN 0.3 % (0.0-1.5); BG OXYGEN SATURATION 98.4 % (92.0-98.5); BG OXYHEMOGLOBIN 97.9 % (94.0-97.0); BG PCO2 26.5 mmHg (35.0-45.0); BG PH 7.453 (7.350-7.450); BG PO2 146.9 mmHg (75.0-100.0); BG SAMPLE SITE RIGHT RADIAL; BG TOTAL HEMOGLOBIN 10.2 g/dL (12.0-18.0); BG VENT MODE VENT - AC
[2022-07-10] MEDS ORDERED: AMLODIPINE 10MG TABLET PO SCH (09:00)
[2022-07-10] MEDS: ONDANSETRON HCL 4MG/2ML INJ IV PRN ×2 (09:46→18:58)
[2022-07-10] MEDS ORDERED: METOPROLOL TARTRATE 50MG TABLET PO SCH (11:15)
[2022-07-10] MEDS: METOCLOPRAMIDE HCL 10MG/2ML VIAL IV SCH ×3 (11:36→23:51)
[2022-07-10] MEDS: DEXTROSE 5% WATER 1,000 ML IV SCH (12:11)
[2022-07-10] MEDS: ENOXAPARIN 40MG/0.4ML SYR SUBCUT SCH (17:31)
[2022-07-10] MEDS: ACETAMINOPHEN 650MG/20.3ML UDC GT PRN (18:22)
[2022-07-10] MEDS ORDERED: METOPROLOL TARTRATE 25MG TABLET PO SCH (21:00)
[2022-07-10] MEDS: METOPROLOL TARTRATE 100MG TABLET PO SCH (21:11)
[2022-07-10] MEDS: INSULIN GLARGINE 100 UNITS/ML SUBCUT SCH (21:14)
[2022-07-11] VITALS (47 sets, daily range): BP systolic 116–181; BP diastolic 71–119
[2022-07-11] MEDS: IPRATROPIUM/ALBUTEROL 0.5-3(2.5)MG/3ML NEB HHN SCH ×6 (00:37→20:59)
[2022-07-11 05:03] LABS: HEMATOCRIT 27.4 % (42.0-52.0); MEAN CORPUSCULAR VOLUME 84.9 fL (80.0-94.0); PLATELET 343 x1000/uL (130-400); RED BLOOD CELL COUNT 3.23 mill/uL (4.7-6.1); RED CELL DISTRIBUTION WIDTH 17.5 % (11.6-14.6)
[2022-07-11 05:17] LABS: CHLORIDE 116 mEq/L (98-107)
[2022-07-11] MEDS: METOCLOPRAMIDE HCL 10MG/2ML VIAL IV SCH ×3 (05:41→17:18)
[2022-07-11] MEDS: PANTOPRAZOLE 40MG DR TABLET PO SCH ×2 (05:41→21:11)
[2022-07-11] MEDS: MEROPENEM 1,000 MG in SODIUM CHLORIDE 0.9% 100 ML IV SCH ×3 (05:41→21:11)
[2022-07-11] MEDS: BLOOD SUGAR DIAGNOSTIC STRIP TEST SCH ×3 (05:41→17:20)
[2022-07-11] MEDS: INSULIN LISPRO 100 UNITS/ML SUBCUT SCH ×5 (05:42→17:20)
[2022-07-11] MEDS: DEXTROSE 5% WATER 1,000 ML IV SCH (05:42)
[2022-07-11] MEDS: ACETYLCYSTEINE 100MG/ML 10% VIAL 4ML INH SCH ×2 (08:03→16:22)
[2022-07-11] MEDS: DOCUSATE SODIUM SUGAR FREE 100MG/10ML UDC NG SCH (08:04)
[2022-07-11] MEDS: BIKTARVY 50-200-25MG TABLET PO SCH (08:04)
[2022-07-11] MEDS: METOPROLOL TARTRATE 100MG TABLET PO SCH ×2 (08:04→21:12)
[2022-07-11] MEDS: FOLIC ACID/VITAMIN B COMP W-C TABLET PO SCH (08:04)
[2022-07-11 09:35] LABS: BG BASE EXCESS -0.4 mmol/L (-2.0-2.0); BG CARBOXYHEMOGLOBIN 0.3 % (0.5-1.5); BG DEOXYHEMOGLOBIN 6.5 % (0.0-5.0); BG FRACTION INSPIRED OXYGEN 40; BG HCO3 ACT 23.4 mmol/L (22.0-26.0); BG METHEMOGLOBIN 0.4 % (0.0-1.5); BG OXYGEN SATURATION 93.5 % (92.0-98.5); BG OXYHEMOGLOBIN 92.8 % (94.0-97.0); BG PCO2 35.2 mmHg (35.0-45.0); BG PH 7.441 (7.350-7.450); BG PO2 67.5 mmHg (75.0-100.0); BG SAMPLE SITE LEFT RADIAL; BG TOTAL HEMOGLOBIN 9.9 g/dL (12.0-18.0); BG VENT MODE VENT - AC
[2022-07-11] MEDS: HYDRALAZINE 20MG/ML VIAL IV PRN ×2 (10:11→17:32)
[2022-07-11] MEDS: POTASSIUM CHLORIDE INJ 30 MEQ in DEXTROSE 5% WATER 1,000 ML IV SCH (14:10)
[2022-07-11] MEDS: ENOXAPARIN 40MG/0.4ML SYR SUBCUT SCH (17:18)
[2022-07-11] MEDS: INSULIN GLARGINE 100 UNITS/ML SUBCUT SCH (21:12)
[2022-07-12] VITALS (44 sets, daily range): BP systolic 104–193; BP diastolic 58–141
[2022-07-12] MEDS: BLOOD SUGAR DIAGNOSTIC STRIP TEST SCH ×4 (00:08→17:07)
[2022-07-12] MEDS: METOCLOPRAMIDE HCL 10MG/2ML VIAL IV SCH ×4 (00:13→17:15)
[2022-07-12] MEDS: INSULIN LISPRO 100 UNITS/ML SUBCUT SCH ×4 (00:13→17:16)
[2022-07-12] MEDS: IPRATROPIUM/ALBUTEROL 0.5-3(2.5)MG/3ML NEB HHN SCH ×6 (00:16→20:32)
[2022-07-12] MEDS: ACETYLCYSTEINE 100MG/ML 10% VIAL 4ML INH SCH ×2 (00:16→07:58)
[2022-07-12] MEDS: ONDANSETRON HCL 4MG/2ML INJ IV PRN (04:02)
[2022-07-12] MEDS: MORPHINE SULFATE 2 MG/ML CPJ (NOT FOR IM USE) IV PRN (04:03)
[2022-07-12 04:25] LABS: HEMATOCRIT 28.9 % (42.0-52.0); HEMOGLOBIN 9.3 g/dL (14.0-18.0); MEAN CORPUSCULAR HEMOGLOBIN 27.5 pg (28.0-32.0); MEAN CORPUSCULAR VOLUME 85.5 fL (80.0-94.0); PLATELET 349 x1000/uL (130-400); RED BLOOD CELL COUNT 3.38 mill/uL (4.7-6.1); RED CELL DISTRIBUTION WIDTH 17.2 % (11.6-14.6)
[2022-07-12 04:34] LABS: CHLORIDE 114 mEq/L (98-107)
[2022-07-12 04:39] LABS: PHOSPHORUS 3.6 mg/dL (2.5-4.9)
[2022-07-12] MEDS: MEROPENEM 1,000 MG in SODIUM CHLORIDE 0.9% 100 ML IV SCH ×3 (05:37→21:13)
[2022-07-12] MEDS: POTASSIUM CHLORIDE INJ 30 MEQ in DEXTROSE 5% WATER 1,000 ML IV SCH ×2 (05:38→21:16)
[2022-07-12] MEDS: PANTOPRAZOLE 40MG DR TABLET PO SCH ×2 (05:38→21:13)
[2022-07-12] MEDS: DOCUSATE SODIUM SUGAR FREE 100MG/10ML UDC NG SCH (08:35)
[2022-07-12] MEDS: FOLIC ACID/VITAMIN B COMP W-C TABLET PO SCH (09:12)
[2022-07-12] MEDS: METOPROLOL TARTRATE 100MG TABLET PO SCH (09:13)
[2022-07-12] MEDS: BIKTARVY 50-200-25MG TABLET PO SCH (09:14)
[2022-07-12 09:34] LABS: BG BASE EXCESS -2.1 mmol/L (-2.0-2.0); BG CARBOXYHEMOGLOBIN 0.3 % (0.5-1.5); BG DEOXYHEMOGLOBIN 0.7 % (0.0-5.0); BG FRACTION INSPIRED OXYGEN 40; BG HCO3 ACT 21.3 mmol/L (22.0-26.0); BG METHEMOGLOBIN 0.4 % (0.0-1.5); BG OXYGEN SATURATION 99.3 % (92.0-98.5); BG OXYHEMOGLOBIN 98.6 % (94.0-97.0); BG PCO2 31.4 mmHg (35.0-45.0); BG SAMPLE SITE LEFT RADIAL; BG TOTAL HEMOGLOBIN 9.7 g/dL (12.0-18.0); BG VENT MODE VENT - SIMV
[2022-07-12] MEDS ORDERED: MAGNESIUM 2 G PREMIX 50 ML IV NR (10:30)
[2022-07-12] MEDS ORDERED: LABETALOL HCL 200MG TABLET PO SCH (11:00)
[2022-07-12] MEDS: HYDRALAZINE 20MG/ML VIAL IV PRN ×2 (11:29→17:15)
[2022-07-12] MEDS: ENOXAPARIN 40MG/0.4ML SYR SUBCUT SCH (17:15)
[2022-07-12] MEDS: LABETALOL HCL 200MG TABLET PO SCH (21:14)
[2022-07-12] MEDS: INSULIN GLARGINE 100 UNITS/ML SUBCUT SCH (21:15)
[2022-07-13] VITALS (46 sets, daily range): BP systolic 116–176; BP diastolic 69–126
[2022-07-13] MEDS: IPRATROPIUM/ALBUTEROL 0.5-3(2.5)MG/3ML NEB HHN SCH ×6 (00:23→21:09)
[2022-07-13] MEDS: METOCLOPRAMIDE HCL 10MG/2ML VIAL IV SCH ×4 (00:38→17:43)
[2022-07-13] MEDS: BLOOD SUGAR DIAGNOSTIC STRIP TEST SCH ×4 (00:38→17:35)
[2022-07-13] MEDS: INSULIN LISPRO 100 UNITS/ML SUBCUT SCH ×4 (00:38→17:44)
[2022-07-13 04:55] LABS: HEMATOCRIT 28.4 % (42.0-52.0); MEAN CORPUSCULAR HEMOGLOBIN 27.3 pg (28.0-32.0); MEAN CORPUSCULAR VOLUME 86.5 fL (80.0-94.0); PLATELET 304 x1000/uL (130-400); RED BLOOD CELL COUNT 3.28 mill/uL (4.7-6.1); RED CELL DISTRIBUTION WIDTH 17.5 % (11.6-14.6)
[2022-07-13 05:26] LABS: CHLORIDE 113 mEq/L (98-107)
[2022-07-13] MEDS: MEROPENEM 1,000 MG in SODIUM CHLORIDE 0.9% 100 ML IV SCH ×3 (05:53→20:43)
[2022-07-13] MEDS: PANTOPRAZOLE 40MG DR TABLET PO SCH ×2 (05:53→21:00)
[2022-07-13] MEDS: BIKTARVY 50-200-25MG TABLET PO SCH (08:04)
[2022-07-13] MEDS: DOCUSATE SODIUM SUGAR FREE 100MG/10ML UDC NG SCH (08:05)
[2022-07-13] MEDS: LABETALOL HCL 200MG TABLET PO SCH ×2 (08:05→20:42)
[2022-07-13] MEDS: FOLIC ACID/VITAMIN B COMP W-C TABLET PO SCH (08:05)
[2022-07-13 08:19] LABS: BG CARBOXYHEMOGLOBIN 0.3 % (0.5-1.5); BG DEOXYHEMOGLOBIN 1.4 % (0.0-5.0); BG FRACTION INSPIRED OXYGEN 30; BG HCO3 ACT 24.3 mmol/L (22.0-26.0); BG METHEMOGLOBIN 0.4 % (0.0-1.5); BG OXYGEN SATURATION 98.6 % (92.0-98.5); BG OXYHEMOGLOBIN 97.9 % (94.0-97.0); BG PCO2 34.3 mmHg (35.0-45.0); BG PH 7.469 (7.350-7.450); BG PO2 147.8 mmHg (75.0-100.0); BG SAMPLE SITE LEFT RADIAL; BG TOTAL HEMOGLOBIN 11.2 g/dL (12.0-18.0); BG TOTAL RESPIRATORY RATE 13 b/min; BG VENT MODE VENT - SIMV
[2022-07-13 10:48] LABS: INR 1.1; PROTHROMBIN TIME 11.8 sec (9.6-11.0)
[2022-07-13 11:00] LABS: BG BASE EXCESS 0.5 mmol/L (-2.0-2.0); BG CARBOXYHEMOGLOBIN 0.3 % (0.5-1.5); BG DEOXYHEMOGLOBIN 1.2 % (0.0-5.0); BG FRACTION INSPIRED OXYGEN 30; BG HCO3 ACT 24.5 mmol/L (22.0-26.0); BG METHEMOGLOBIN 0.3 % (0.0-1.5); BG OXYGEN SATURATION 98.8 % (92.0-98.5); BG OXYHEMOGLOBIN 98.2 % (94.0-97.0); BG PCO2 36.6 mmHg (35.0-45.0); BG PH 7.443 (7.350-7.450); BG PO2 134.2 mmHg (75.0-100.0); BG SAMPLE SITE RIGHT RADIAL; BG TOTAL HEMOGLOBIN 8.9 g/dL (12.0-18.0); BG VENT MODE VENT - CPAP
[2022-07-13 14:22] LABS: BG BASE EXCESS 0.7 mmol/L (-2.0-2.0); BG DEOXYHEMOGLOBIN 1.1 % (0.0-5.0); BG FRACTION INSPIRED OXYGEN 35; BG HCO3 ACT 24.4 mmol/L (22.0-26.0); BG METHEMOGLOBIN 0.4 % (0.0-1.5); BG OXYGEN SATURATION 98.9 % (92.0-98.5); BG OXYHEMOGLOBIN 98.5 % (94.0-97.0); BG PCO2 35.7 mmHg (35.0-45.0); BG PH 7.453 (7.350-7.450); BG PO2 146.1 mmHg (75.0-100.0); BG SAMPLE SITE RIGHT RADIAL; BG TOTAL HEMOGLOBIN 9.8 g/dL (12.0-18.0); BG VENT MODE COOL AEROSOL
[2022-07-13] MEDS ORDERED: MAGNESIUM 2 G PREMIX 50 ML IV NR (17:00)
[2022-07-13] MEDS: ENOXAPARIN 40MG/0.4ML SYR SUBCUT SCH (17:43)
[2022-07-13] MEDS: ONDANSETRON HCL 4MG/2ML INJ IV PRN ×2 (20:43→20:49)
[2022-07-13] MEDS: INSULIN GLARGINE 100 UNITS/ML SUBCUT SCH (22:18)
[2022-07-14] VITALS (26 sets, daily range): BP systolic 100–174; BP diastolic 53–110
[2022-07-14] MEDS: IPRATROPIUM/ALBUTEROL 0.5-3(2.5)MG/3ML NEB HHN SCH ×6 (00:33→21:28)
[2022-07-14] MEDS: METOCLOPRAMIDE HCL 10MG/2ML VIAL IV SCH ×4 (02:17→17:48)
[2022-07-14] MEDS: MEROPENEM 1,000 MG in SODIUM CHLORIDE 0.9% 100 ML IV SCH ×3 (05:49→22:40)
[2022-07-14] MEDS: BLOOD SUGAR DIAGNOSTIC STRIP TEST SCH ×5 (05:56→23:59)
[2022-07-14] MEDS: INSULIN LISPRO 100 UNITS/ML SUBCUT SCH ×4 (05:57→17:47)
[2022-07-14 06:04] LABS: BASOPHILS % 0.7 % (0.0-2.0); EOSINOPHILS % 0.8 % (0.0-5.0); HEMATOCRIT. 24.8 % (42.0-52.0); HEMOGLOBIN. 7.9 g/dL (14.0-18.0); LYMPHOCYTES % 13.4 % (20.0-50.0); MEAN CORPUSCULAR HEMOGLOBIN 28.2 pg (28.0-32.0); MEAN CORPUSCULAR VOLUME 87.9 fL (80.0-94.0); MEAN PLATELET VOLUME 8.3 fl (7.4-10.4); MONOCYTES % 7.1 % (2.0-8.0); PLATELET 144 x1000/uL (130-400); RED BLOOD CELL COUNT 2.82 mill/uL (4.7-6.1); RED CELL DISTRIBUTION WIDTH 16.7 % (11.6-14.6)
[2022-07-14 06:56] LABS: CHLORIDE 114 mEq/L (98-107)
[2022-07-14 07:03] LABS: PHOSPHORUS 3.4 mg/dL (2.5-4.9)
[2022-07-14] MEDS: PANTOPRAZOLE 40MG DR TABLET PO SCH ×2 (07:29→22:41)
[2022-07-14 07:51] LABS: BG BASE EXCESS -0.9 mmol/L (-2.0-2.0); BG CARBOXYHEMOGLOBIN 0.3 % (0.5-1.5); BG DEOXYHEMOGLOBIN 1.4 % (0.0-5.0); BG HCO3 ACT 22.6 mmol/L (22.0-26.0); BG METHEMOGLOBIN 0.4 % (0.0-1.5); BG OXYGEN SATURATION 98.6 % (92.0-98.5); BG OXYHEMOGLOBIN 97.9 % (94.0-97.0); BG PCO2 32.5 mmHg (35.0-45.0); BG PO2 135.8 mmHg (75.0-100.0); BG SAMPLE SITE RIGHT RADIAL; BG TOTAL HEMOGLOBIN 8.6 g/dL (12.0-18.0); BG VENT MODE NASAL CANNULA
[2022-07-14] MEDS: FOLIC ACID/VITAMIN B COMP W-C TABLET PO SCH (08:50)
[2022-07-14] MEDS: BIKTARVY 50-200-25MG TABLET PO SCH (08:51)
[2022-07-14] MEDS: ENOXAPARIN 30MG/0.3ML SYR SUBCUT SCH ×2 (08:51→22:41)
[2022-07-14] MEDS: LABETALOL HCL 200MG TABLET PO SCH ×2 (08:52→22:45)
[2022-07-14] MEDS: DOCUSATE SODIUM SUGAR FREE 100MG/10ML UDC NG SCH (08:55)
[2022-07-14] MEDS ORDERED: NALOXONE HCL 0.4 MG/ML 1ML VIAL IV PRN (16:15)
[2022-07-14] MEDS: INSULIN GLARGINE 100 UNITS/ML SUBCUT SCH (22:44)
[2022-07-15] VITALS (13 sets, daily range): BP systolic 111–169; BP diastolic 64–113
[2022-07-15] MEDS: INSULIN LISPRO 100 UNITS/ML SUBCUT SCH ×5 (00:02→23:13)
[2022-07-15] MEDS: METOCLOPRAMIDE HCL 10MG/2ML VIAL IV SCH ×5 (00:02→23:08)
[2022-07-15] MEDS: IPRATROPIUM/ALBUTEROL 0.5-3(2.5)MG/3ML NEB HHN SCH ×6 (01:24→20:43)
[2022-07-15 06:14] LABS: CHLORIDE 115 mEq/L (98-107)
[2022-07-15 06:21] LABS: PHOSPHORUS 2.6 mg/dL (2.5-4.9)
[2022-07-15 06:27] LABS: HEMATOCRIT 26.1 % (42.0-52.0); HEMOGLOBIN 8.5 g/dL (14.0-18.0); MEAN CORPUSCULAR VOLUME 86.3 fL (80.0-94.0); PLATELET 261 x1000/uL (130-400); RED BLOOD CELL COUNT 3.02 mill/uL (4.7-6.1); RED CELL DISTRIBUTION WIDTH 17.1 % (11.6-14.6)
[2022-07-15] MEDS: BLOOD SUGAR DIAGNOSTIC STRIP TEST SCH ×4 (06:49→23:08)
[2022-07-15] MEDS: MEROPENEM 1,000 MG in SODIUM CHLORIDE 0.9% 100 ML IV SCH ×3 (06:51→23:07)
[2022-07-15] MEDS: PANTOPRAZOLE 40MG DR TABLET PO SCH ×2 (06:51→23:08)
[2022-07-15] MEDS: HYDRALAZINE 20MG/ML VIAL IV PRN (06:52)
[2022-07-15 08:47] LABS: BG CARBOXYHEMOGLOBIN 0.3 % (0.5-1.5); BG DEOXYHEMOGLOBIN 2.7 % (0.0-5.0); BG FRACTION INSPIRED OXYGEN 21; BG METHEMOGLOBIN 0.3 % (0.0-1.5); BG OXYGEN SATURATION 97.3 % (92.0-98.5); BG OXYHEMOGLOBIN 96.7 % (94.0-97.0); BG PCO2 32.5 mmHg (35.0-45.0); BG PH 7.487 (7.350-7.450); BG PO2 96.1 mmHg (75.0-100.0); BG SAMPLE SITE LEFT RADIAL; BG TOTAL HEMOGLOBIN 9.6 g/dL (12.0-18.0); BG VENT MODE ROOM AIR
[2022-07-15] MEDS: LABETALOL HCL 200MG TABLET PO SCH (09:16)
[2022-07-15] MEDS: FOLIC ACID/VITAMIN B COMP W-C TABLET PO SCH (09:17)
[2022-07-15] MEDS: DOCUSATE SODIUM SUGAR FREE 100MG/10ML UDC NG SCH (09:17)
[2022-07-15] MEDS: ENOXAPARIN 30MG/0.3ML SYR SUBCUT SCH ×2 (09:17→23:07)
[2022-07-15] MEDS: BIKTARVY 50-200-25MG TABLET PO SCH (09:17)
[2022-07-15] MEDS ORDERED: LABE300T36 PO (14:03)
[2022-07-15] MEDS ORDERED: AMLO10TA80 PO (14:03)
[2022-07-15] MEDS ORDERED: PANT40TA51 PO (14:03)
[2022-07-15] MEDS ORDERED: METO5VIA3 IV (14:03)
[2022-07-15] MEDS ORDERED: LOV30 SUBCUT (14:03)
[2022-07-15] MEDS: AMLODIPINE 10MG TABLET PO SCH (15:16)
[2022-07-15] MEDS: LABETALOL HCL 300MG TABLET PO SCH ×2 (16:13→23:08)
[2022-07-15] MEDS: INSULIN GLARGINE 100 UNITS/ML SUBCUT SCH (23:12)
[2022-07-16] VITALS (12 sets, daily range): BP systolic 122–173; BP diastolic 84–109
[2022-07-16] MEDS: IPRATROPIUM/ALBUTEROL 0.5-3(2.5)MG/3ML NEB HHN SCH ×7 (01:02→23:49)
[2022-07-16 06:12] LABS: CHLORIDE 115 mEq/L (98-107)
[2022-07-16 06:15] LABS: HEMATOCRIT 25.3 % (42.0-52.0); HEMOGLOBIN 8.2 g/dL (14.0-18.0); MEAN CORPUSCULAR HEMOGLOBIN 28.1 pg (28.0-32.0); MEAN CORPUSCULAR VOLUME 86.8 fL (80.0-94.0); PLATELET 205 x1000/uL (130-400); RED BLOOD CELL COUNT 2.91 mill/uL (4.7-6.1); RED CELL DISTRIBUTION WIDTH 17.2 % (11.6-14.6)
[2022-07-16] MEDS: PANTOPRAZOLE 40MG DR TABLET PO SCH ×2 (07:15→22:19)
[2022-07-16] MEDS: METOCLOPRAMIDE HCL 10MG/2ML VIAL IV SCH ×3 (07:15→17:09)
[2022-07-16] MEDS: MEROPENEM 1,000 MG in SODIUM CHLORIDE 0.9% 100 ML IV SCH ×3 (07:15→22:19)
[2022-07-16] MEDS: LABETALOL HCL 300MG TABLET PO SCH ×3 (07:16→22:20)
[2022-07-16] MEDS: BLOOD SUGAR DIAGNOSTIC STRIP TEST SCH ×3 (07:27→17:05)
[2022-07-16] MEDS: INSULIN LISPRO 100 UNITS/ML SUBCUT SCH ×3 (07:28→17:10)
[2022-07-16] MEDS: BIKTARVY 50-200-25MG TABLET PO SCH (08:04)
[2022-07-16] MEDS: AMLODIPINE 10MG TABLET PO SCH (08:04)
[2022-07-16] MEDS: DOCUSATE SODIUM SUGAR FREE 100MG/10ML UDC NG SCH (08:04)
[2022-07-16] MEDS: FOLIC ACID/VITAMIN B COMP W-C TABLET PO SCH (08:04)
[2022-07-16] MEDS: ENOXAPARIN 30MG/0.3ML SYR SUBCUT SCH ×2 (08:05→22:19)
[2022-07-16] MEDS: INSULIN GLARGINE 100 UNITS/ML SUBCUT SCH (22:23)
[2022-07-17] VITALS (15 sets, daily range): BP systolic 133–178; BP diastolic 77–117
[2022-07-17] MEDS: BLOOD SUGAR DIAGNOSTIC STRIP TEST SCH ×4 (01:15→18:06)
[2022-07-17] MEDS: METOCLOPRAMIDE HCL 10MG/2ML VIAL IV SCH ×4 (01:15→17:54)
[2022-07-17] MEDS: INSULIN LISPRO 100 UNITS/ML SUBCUT SCH ×4 (01:20→18:06)
[2022-07-17] MEDS: HYDRALAZINE 20MG/ML VIAL IV PRN (04:31)
[2022-07-17] MEDS: IPRATROPIUM/ALBUTEROL 0.5-3(2.5)MG/3ML NEB HHN SCH ×5 (04:38→20:37)
[2022-07-17 06:13] LABS: CHLORIDE 114 mEq/L (98-107)
[2022-07-17 06:14] LABS: BASOPHILS % 1.3 % (0.0-2.0); EOSINOPHILS % 0.6 % (0.0-5.0); HEMATOCRIT. 25.8 % (42.0-52.0); HEMOGLOBIN. 8.5 g/dL (14.0-18.0); MEAN CORPUSCULAR HEMOGLOBIN 28.2 pg (28.0-32.0); MEAN PLATELET VOLUME 8.3 fl (7.4-10.4); MONOCYTES % 7.8 % (2.0-8.0); NEUTROPHILS % 71.3 % (40.0-76.0); PLATELET 195 x1000/uL (130-400); RED CELL DISTRIBUTION WIDTH 17.2 % (11.6-14.6)
[2022-07-17 06:22] LABS: PHOSPHORUS 2.8 mg/dL (2.5-4.9)
[2022-07-17] MEDS: LABETALOL HCL 300MG TABLET PO SCH ×3 (07:00→23:01)
[2022-07-17] MEDS: PANTOPRAZOLE 40MG DR TABLET PO SCH ×2 (07:07→21:15)
[2022-07-17] MEDS: MEROPENEM 1,000 MG in SODIUM CHLORIDE 0.9% 100 ML IV SCH ×3 (07:07→21:15)
[2022-07-17] MEDS: DOCUSATE SODIUM SUGAR FREE 100MG/10ML UDC NG SCH (09:00)
[2022-07-17] MEDS: ENOXAPARIN 30MG/0.3ML SYR SUBCUT SCH ×2 (09:38→21:15)
[2022-07-17] MEDS: AMLODIPINE 10MG TABLET PO SCH (09:39)
[2022-07-17] MEDS: FOLIC ACID/VITAMIN B COMP W-C TABLET PO SCH (09:39)
[2022-07-17] MEDS: MAGNESIUM OXIDE 400MG TABLET PO SCH ×2 (09:41→21:17)
[2022-07-17] MEDS: BIKTARVY 50-200-25MG TABLET PO SCH (09:41)
[2022-07-17] MEDS ORDERED: MAGNESIUM 2 G PREMIX 50 ML IV SCH (10:00)
[2022-07-17 16:56] LABS: BG BASE EXCESS 4.9 mmol/L (-2.0-2.0); BG CARBOXYHEMOGLOBIN 0.1 % (0.5-1.5); BG DEOXYHEMOGLOBIN 6.3 % (0.0-5.0); BG FRACTION INSPIRED OXYGEN 21; BG HCO3 ACT 28.3 mmol/L (22.0-26.0); BG METHEMOGLOBIN 0.3 % (0.0-1.5); BG OXYGEN SATURATION 93.7 % (92.0-98.5); BG OXYHEMOGLOBIN 93.3 % (94.0-97.0); BG PCO2 36.9 mmHg (35.0-45.0); BG PH 7.502 (7.350-7.450); BG PO2 67.6 mmHg (75.0-100.0); BG SAMPLE SITE RIGHT RADIAL; BG TOTAL HEMOGLOBIN 9.3 g/dL (12.0-18.0); BG VENT MODE ROOM AIR
[2022-07-17] MEDS: INSULIN GLARGINE 100 UNITS/ML SUBCUT SCH (23:01)
[2022-07-18] VITALS (15 sets, daily range): BP systolic 130–198; BP diastolic 74–118
[2022-07-18] MEDS: IPRATROPIUM/ALBUTEROL 0.5-3(2.5)MG/3ML NEB HHN SCH ×6 (00:08→20:24)
[2022-07-18] MEDS: BLOOD SUGAR DIAGNOSTIC STRIP TEST SCH ×4 (00:44→17:15)
[2022-07-18] MEDS: METOCLOPRAMIDE HCL 10MG/2ML VIAL IV SCH ×4 (00:44→17:17)
[2022-07-18] MEDS: INSULIN LISPRO 100 UNITS/ML SUBCUT SCH ×4 (00:51→17:17)
[2022-07-18] MEDS: HYDRALAZINE 20MG/ML VIAL IV PRN (04:17)
[2022-07-18] MEDS: LABETALOL HCL 300MG TABLET PO SCH ×3 (06:45→21:33)
[2022-07-18] MEDS: MEROPENEM 1,000 MG in SODIUM CHLORIDE 0.9% 100 ML IV SCH ×3 (06:45→21:33)
[2022-07-18] MEDS: PANTOPRAZOLE 40MG DR TABLET PO SCH ×2 (06:48→21:26)
[2022-07-18] MEDS: DOCUSATE SODIUM SUGAR FREE 100MG/10ML UDC NG SCH (08:26)
[2022-07-18] MEDS: FOLIC ACID/VITAMIN B COMP W-C TABLET PO SCH (08:26)
[2022-07-18] MEDS: AMLODIPINE 10MG TABLET PO SCH (08:26)
[2022-07-18] MEDS: MAGNESIUM OXIDE 400MG TABLET PO SCH ×2 (08:26→21:25)
[2022-07-18] MEDS: BIKTARVY 50-200-25MG TABLET PO SCH (08:26)
[2022-07-18] MEDS: ENOXAPARIN 30MG/0.3ML SYR SUBCUT SCH ×3 (08:27→21:26)
[2022-07-18 08:40] LABS: BASOPHILS % 0.8 % (0.0-2.0); EOSINOPHILS % 0.6 % (0.0-5.0); HEMATOCRIT. 24.1 % (42.0-52.0); HEMOGLOBIN. 7.8 g/dL (14.0-18.0); LYMPHOCYTES % 14.5 % (20.0-50.0); MEAN CORPUSCULAR HEMOGLOBIN 27.8 pg (28.0-32.0); MEAN CORPUSCULAR VOLUME 86.3 fL (80.0-94.0); MEAN PLATELET VOLUME 7.5 fl (7.4-10.4); MONOCYTES % 7.8 % (2.0-8.0); NEUTROPHILS % 76.3 % (40.0-76.0); PLATELET 174 x1000/uL (130-400); RED BLOOD CELL COUNT 2.79 mill/uL (4.7-6.1); RED CELL DISTRIBUTION WIDTH 17.4 % (11.6-14.6)
[2022-07-18 09:15] LABS: CHLORIDE 111 mEq/L (98-107)
[2022-07-18 09:21] LABS: PHOSPHORUS 2.6 mg/dL (2.5-4.9)
[2022-07-18] MEDS: INSULIN GLARGINE 100 UNITS/ML SUBCUT SCH (21:46)
[2022-07-19] VITALS (15 sets, daily range): BP systolic 135–199; BP diastolic 78–117
[2022-07-19] MEDS: IPRATROPIUM/ALBUTEROL 0.5-3(2.5)MG/3ML NEB HHN SCH ×4 (00:08→11:58)
[2022-07-19] MEDS: METOCLOPRAMIDE HCL 10MG/2ML VIAL IV SCH ×4 (00:23→17:41)
[2022-07-19] MEDS: BLOOD SUGAR DIAGNOSTIC STRIP TEST SCH ×5 (00:26→23:04)
[2022-07-19] MEDS: INSULIN LISPRO 100 UNITS/ML SUBCUT SCH ×5 (00:31→23:03)
[2022-07-19] MEDS: HYDRALAZINE 20MG/ML VIAL IV PRN ×2 (02:51→12:18)
[2022-07-19] MEDS: PANTOPRAZOLE 40MG DR TABLET PO SCH ×2 (05:52→21:58)
[2022-07-19] MEDS: LABETALOL HCL 300MG TABLET PO SCH ×3 (05:58→22:42)
[2022-07-19] MEDS: DOCUSATE SODIUM SUGAR FREE 100MG/10ML UDC NG SCH (08:34)
[2022-07-19] MEDS: FOLIC ACID/VITAMIN B COMP W-C TABLET PO SCH (08:40)
[2022-07-19] MEDS: MAGNESIUM OXIDE 400MG TABLET PO SCH ×2 (08:40→22:26)
[2022-07-19] MEDS: BIKTARVY 50-200-25MG TABLET PO SCH (08:40)
[2022-07-19] MEDS: ENOXAPARIN 30MG/0.3ML SYR SUBCUT SCH ×2 (08:40→21:58)
[2022-07-19] MEDS: AMLODIPINE 10MG TABLET PO SCH (08:40)
[2022-07-19 10:25] LABS: CHLORIDE 109 mEq/L (98-107)
[2022-07-19 13:33] LABS: BASOPHILS % 0.9 % (0.0-2.0); EOSINOPHILS % 1.7 % (0.0-5.0); HEMATOCRIT. 25.9 % (42.0-52.0); HEMOGLOBIN. 8.3 g/dL (14.0-18.0); LYMPHOCYTES % 12.5 % (20.0-50.0); MEAN CORPUSCULAR HEMOGLOBIN 27.7 pg (28.0-32.0); MEAN CORPUSCULAR VOLUME 86.3 fL (80.0-94.0); MEAN PLATELET VOLUME 8.3 fl (7.4-10.4); MONOCYTES % 5.5 % (2.0-8.0); NEUTROPHILS % 79.4 % (40.0-76.0); PLATELET 130 x1000/uL (130-400); RED CELL DISTRIBUTION WIDTH 18.1 % (11.6-14.6)
[2022-07-19] MEDS: HYDRALAZINE HCL 50MG TABLET PO SCH (22:42)
[2022-07-19] MEDS: INSULIN GLARGINE 100 UNITS/ML SUBCUT SCH (23:00)
[2022-07-20] VITALS (14 sets, daily range): BP systolic 98–151; BP diastolic 58–108
[2022-07-20] MEDS: METOCLOPRAMIDE HCL 10MG/2ML VIAL IV SCH ×4 (00:25→17:20)
[2022-07-20] MEDS: HYDRALAZINE HCL 50MG TABLET PO SCH ×3 (06:00→21:44)
[2022-07-20] MEDS: INSULIN LISPRO 100 UNITS/ML SUBCUT SCH ×3 (06:00→17:21)
[2022-07-20] MEDS: BLOOD SUGAR DIAGNOSTIC STRIP TEST SCH ×3 (06:00→17:10)
[2022-07-20] MEDS: PANTOPRAZOLE 40MG DR TABLET PO SCH ×2 (06:10→21:44)
[2022-07-20] MEDS: LABETALOL HCL 300MG TABLET PO SCH ×3 (06:10→21:44)
[2022-07-20] MEDS: BIKTARVY 50-200-25MG TABLET PO SCH (09:38)
[2022-07-20] MEDS: ENOXAPARIN 30MG/0.3ML SYR SUBCUT SCH ×2 (09:39→21:45)
[2022-07-20] MEDS: AMLODIPINE 10MG TABLET PO SCH (09:39)
[2022-07-20] MEDS: FOLIC ACID/VITAMIN B COMP W-C TABLET PO SCH (09:39)
[2022-07-20] MEDS: MAGNESIUM OXIDE 400MG TABLET PO SCH ×2 (09:39→21:44)
[2022-07-20] MEDS: DOCUSATE SODIUM SUGAR FREE 100MG/10ML UDC NG SCH (09:39)
[2022-07-20] MEDS: ACETAMINOPHEN 650MG/20.3ML UDC GT PRN (17:21)
[2022-07-20] MEDS: INSULIN GLARGINE 100 UNITS/ML SUBCUT SCH (21:47)
[2022-07-21] VITALS (10 sets, daily range): BP systolic 121–180; BP diastolic 74–113
[2022-07-21] MEDS: METOCLOPRAMIDE HCL 10MG/2ML VIAL IV SCH ×3 (00:08→12:32)
[2022-07-21] MEDS: BLOOD SUGAR DIAGNOSTIC STRIP TEST SCH ×3 (00:12→11:56)
[2022-07-21] MEDS: INSULIN LISPRO 100 UNITS/ML SUBCUT SCH ×3 (07:01→12:32)
[2022-07-21] MEDS: PANTOPRAZOLE 40MG DR TABLET PO SCH (07:02)
[2022-07-21] MEDS: LABETALOL HCL 300MG TABLET PO SCH ×2 (07:03→14:24)
[2022-07-21] MEDS: HYDRALAZINE HCL 50MG TABLET PO SCH ×2 (07:03→14:25)
[2022-07-21] MEDS: HYDRALAZINE 20MG/ML VIAL IV PRN (09:18)
[2022-07-21] MEDS: FOLIC ACID/VITAMIN B COMP W-C TABLET PO SCH (09:18)
[2022-07-21] MEDS: ENOXAPARIN 30MG/0.3ML SYR SUBCUT SCH (09:18)
[2022-07-21] MEDS: DOCUSATE SODIUM SUGAR FREE 100MG/10ML UDC NG SCH (09:18)
[2022-07-21] MEDS: MAGNESIUM OXIDE 400MG TABLET PO SCH (09:19)
[2022-07-21] MEDS: AMLODIPINE 10MG TABLET PO SCH (09:19)
[2022-07-21] MEDS: BIKTARVY 50-200-25MG TABLET PO SCH (09:20)
[2022-07-21] MEDS: ONDANSETRON HCL 4MG/2ML INJ IV PRN (14:21)
== END 2022-07-21 20:29 | DRG 853 ==
LOC: ER 10:46 → 5EST 12:20 → EDBEDREQTM 12:30 → EDBEDREQSVC 12:30 → EDBEDREQ 12:30 → ENRESERV 13:34 → MICUSO 07-06 09:30 → 3WST 07-14 16:15
PROVIDERS: ADMIT Internal Medicine; ATTEND Internal Medicine
PROC: 0BH17EZ Insertion of Endotracheal Airway into Trachea, Via Natural or Artificial Opening (ICD-10-PCS; 2022-07-02)
PROC: 5A1955Z Respiratory Ventilation, Greater than 96 Consecutive Hours (ICD-10-PCS; 2022-07-02)
PROC: 02HV33Z Insertion of Infusion Device into Superior Vena Cava, Percutaneous Approach (ICD-10-PCS; 2022-07-06)
PROC: B5181ZA Fluoroscopy of Superior Vena Cava using Low Osmolar Contrast, Guidance (ICD-10-PCS; 2022-07-06)
PROC: B548ZZA Ultrasonography of Superior Vena Cava, Guidance (ICD-10-PCS; 2022-07-06)
PROC: 30233N1 Transfusion of Nonautologous Red Blood Cells into Peripheral Vein, Percutaneous Approach (ICD-10-PCS; 2022-07-09)
PROC: 4A00X4Z Measurement of Central Nervous Electrical Activity, External Approach (ICD-10-PCS; 2022-07-13)
PROC: 0JBR0ZZ Excision of Left Foot Subcutaneous Tissue and Fascia, Open Approach (ICD-10-PCS; principal; 2022-07-17)
DX: A41.51 Sepsis due to Escherichia coli [E. coli] (principal); D65 Disseminated intravascular coagulation [defibrination syndrome]; E43 Unspecified severe protein-calorie malnutrition; L89.623 Pressure ulcer of left heel, stage 3; E11.10 Type 2 diabetes mellitus with ketoacidosis without coma; J96.01 Acute respiratory failure with hypoxia; R65.21 Severe sepsis with septic shock; I21.A1 Myocardial infarction type 2; I50.33 Acute on chronic diastolic (congestive) heart failure; G92.8 Other toxic encephalopathy; N17.0 Acute kidney failure with tubular necrosis; R53.2 Functional quadriplegia; N39.0 Urinary tract infection, site not specified; E87.1 Hypo-osmolality and hyponatremia; I13.0 Hypertensive heart and chronic kidney disease with heart failure and stage 1 through stage 4 chronic kidney disease, or unspecified chronic kidney disease; Z16.12 Extended spectrum beta lactamase (ESBL) resistance; D50.9 Iron deficiency anemia, unspecified; Z20.822 Contact with and (suspected) exposure to COVID-19; E87.5 Hyperkalemia; E11.22 Type 2 diabetes mellitus with diabetic chronic kidney disease; K21.9 Gastro-esophageal reflux disease without esophagitis; E11.65 Type 2 diabetes mellitus with hyperglycemia; I95.9 Hypotension, unspecified; B96.1 Klebsiella pneumoniae [K. pneumoniae] as the cause of diseases classified elsewhere; E88.09 Other disorders of plasma-protein metabolism, not elsewhere classified; L89.629 Pressure ulcer of left heel, unspecified stage; L89.619 Pressure ulcer of right heel, unspecified stage; E87.6 Hypokalemia; N18.9 Chronic kidney disease, unspecified; L89.159 Pressure ulcer of sacral region, unspecified stage; G40.909 Epilepsy, unspecified, not intractable, without status epilepticus; I44.7 Left bundle-branch block, unspecified; R13.10 Dysphagia, unspecified; Z86.718 Personal history of other venous thrombosis and embolism; Z68.30 Body mass index [BMI] 30.0-30.9, adult; Z79.899 Other long term (current) drug therapy; Z82.49 Family history of ischemic heart disease and other diseases of the circulatory system; Z87.820 Personal history of traumatic brain injury; Z93.1 Gastrostomy status
CPT/HCPCS: 31500; 36415; 36573; 36600; 70551; 71045; 73501; 73551; 73590; 73610; 74018; 76770; 80048; 80053; 80202; 81003; 82010; 82040; 82375; 82570; 82728; 82805; 82962; 83036; 83540; 83550; 83605; 83735; 83880; 84100; 84134; 84145; 84156; 84300; 84478; 84484; 85014; 85018; 85025; 85027; 85044; 85049; 85379; 85384; 86359; 86360; 86850; 86900; 86920; 87070; 87077; 87186; 87426; 93005; 93306; 93970; 94002; 94003; 94640; 99291; A6261; C1725; C1887; C1892; J0360; J1650; J1815; J2185; J2250; J2270; J2370; J2405; J2543; J2704; J2765; J3010; J3370; J3475; J3480; J3490; J7030; J7050; J7060; J7070; J7608; P9016; A4315

== ENCOUNTER 2022-10-09 12:12 | Inpatient (IN) | payer BC, OTHER ==
[~2022-10-09] VITALS: Ht 170.2 cm; Wt 78.9 kg
[~2022-10-09 12:12] MED LIST: AMLO10TA80 PO; ASPI-1497 MT; ATOR40TA70 MT; BICT1TAB PO; KEPPSOL GT; LABE300T36 PO; LOV30 SUBCUT; METO5VIA3 IV; PANT40TA51 PO; SENN-178 MT
[2022-10-09 13:19] LABS: BG BASE EXCESS -0.2 mmol/L (-2.0-2.0); BG CARBOXYHEMOGLOBIN 0.3 % (0.5-1.5); BG DEOXYHEMOGLOBIN 3.4 % (0.0-5.0); BG FRACTION INSPIRED OXYGEN 100; BG HCO3 ACT 22.9 mmol/L (22.0-26.0); BG METHEMOGLOBIN 0.5 % (0.0-1.5); BG OXYGEN SATURATION 96.6 % (92.0-98.5); BG OXYHEMOGLOBIN 95.8 % (94.0-97.0); BG PCO2 31.1 mmHg (35.0-45.0); BG PH 7.484 (7.350-7.450); BG PO2 90.7 mmHg (75.0-100.0); BG SAMPLE SITE RIGHT RADIAL; BG TOTAL HEMOGLOBIN 8.8 g/dL (12.0-18.0); BG VENT MODE MASK - NRB
[2022-10-09 13:25] LABS: BASOPHILS % 0.3 % (0.0-2.0); EOSINOPHILS % 0.1 % (0.0-5.0); HEMATOCRIT. 27.7 % (42.0-52.0); HEMOGLOBIN. 8.7 g/dL (14.0-18.0); LYMPHOCYTES % 22.8 % (20.0-50.0); MEAN CORPUSCULAR HEMOGLOBIN 28.3 pg (28.0-32.0); MEAN CORPUSCULAR VOLUME 90.1 fL (80.0-94.0); MEAN PLATELET VOLUME 10.3 fl (7.4-10.4); MONOCYTES % 4.2 % (2.0-8.0); NEUTROPHILS % 72.6 % (40.0-76.0); PLATELET 177 x1000/uL (130-400); RED BLOOD CELL COUNT 3.07 mill/uL (4.7-6.1); RED CELL DISTRIBUTION WIDTH 17.1 % (11.6-14.6)
[2022-10-09 13:50] LABS: CHLORIDE 118 mEq/L (98-107)
[2022-10-09] MEDS ORDERED: PIPERACILLIN/TAZOBACTAM 3.375GM/50ML PREMIX IV NR (14:30)
[2022-10-09] MEDS ORDERED: SODIUM CHLORIDE 0.9% 1,000 ML IV ONE (15:00)
[2022-10-09] MEDS ORDERED: VANCOMYCIN 1G PREMIX 200 ML IV ONE (15:00)
[2022-10-09] MEDS ORDERED: IPRATROPIUM/ALBUTEROL 0.5-3(2.5)MG/3ML NEB HHN PRN (15:30)
[2022-10-09] MEDS ORDERED: HYDROCODONE/ACETAMINOPHEN 5/325MG TABLET PO PRN (15:30)
[2022-10-09] MEDS ORDERED: DOCUSATE SODIUM 100MG CAPSULE PO PRN (15:30)
[2022-10-09] MEDS ORDERED: ACETAMINOPHEN 650MG SUPP PR PRN ×2 (15:30)
[2022-10-09] MEDS ORDERED: GUAIFENESIN 200MG/10ML SUGAR FREE UDC PO PRN (15:30)
[2022-10-09] MEDS: ENOXAPARIN 40MG/0.4ML SYR SUBCUT SCH (15:30)
[2022-10-09] MEDS ORDERED: MAGNESIUM/ALUMINUM HYDROXIDE/SIMETHICONE 30ML UDC PO PRN (15:30)
[2022-10-09] MEDS ORDERED: ONDANSETRON HCL 4MG/2ML INJ IV PRN (15:30)
[2022-10-09] MEDS ORDERED: ACETAMINOPHEN 325MG TABLET PO PRN ×2 (15:30)
[2022-10-09] MEDS ORDERED: DIPHENHYDRAMINE 50MG/ML VIAL IV PRN (15:30)
[2022-10-09] MEDS: GUAIFENESIN 200MG/10ML SUGAR FREE UDC PO SCH (17:00)
[2022-10-09] MEDS ORDERED: NALOXONE HCL 0.4MG/ML VIAL IV PRN (17:00)
[2022-10-09] MEDS: IPRATROPIUM/ALBUTEROL 0.5-3(2.5)MG/3ML NEB HHN SCH (18:00)
[2022-10-10 05:42] LABS: BASOPHILS % 0.3 % (0.0-2.0); EOSINOPHILS % 0.1 % (0.0-5.0); HEMATOCRIT. 25.1 % (42.0-52.0); HEMOGLOBIN. 7.6 g/dL (14.0-18.0); LYMPHOCYTES % 15.1 % (20.0-50.0); MEAN CORPUSCULAR HEMOGLOBIN 28.7 pg (28.0-32.0); MEAN CORPUSCULAR VOLUME 94.4 fL (80.0-94.0); MEAN PLATELET VOLUME 10.3 fl (7.4-10.4); MONOCYTES % 3.8 % (2.0-8.0); NEUTROPHILS % 80.7 % (40.0-76.0); PLATELET 156 x1000/uL (130-400); RED BLOOD CELL COUNT 2.66 mill/uL (4.7-6.1); RED CELL DISTRIBUTION WIDTH 17.1 % (11.6-14.6)
[2022-10-10 05:45] LABS: CHLORIDE 124 mEq/L (98-107)
[2022-10-10] MEDS: IPRATROPIUM/ALBUTEROL 0.5-3(2.5)MG/3ML NEB HHN SCH ×3 (06:00→12:00)
[2022-10-10] MEDS: GUAIFENESIN 200MG/10ML SUGAR FREE UDC PO SCH ×4 (06:00→18:00)
[2022-10-10 06:06] LABS: CREATINE KINASE 1635 IU/L (39-308); HDL CHOLESTEROL 15 mg/dL (40-59); LDL CHOLESTEROL 65 mg/dL (5-100)
[2022-10-10] MEDS ORDERED: DEXTROSE 50% WATER 50ML SYRINGE IV PRN (10:30)
[2022-10-10] MEDS: LEVETIRACETAM 500MG/5ML CUP GT SCH ×2 (10:45→17:00)
[2022-10-10] MEDS: PANTOPRAZOLE 40MG DR TABLET PO SCH ×3 (10:45→17:50)
[2022-10-10] MEDS: BLOOD SUGAR DIAGNOSTIC STRIP TEST SCH ×3 (10:50→21:00)
[2022-10-10 11:05] LABS: BG BASE EXCESS -2.9 mmol/L (-2.0-2.0); BG CARBOXYHEMOGLOBIN 0.2 % (0.5-1.5); BG DEOXYHEMOGLOBIN 4.2 % (0.0-5.0); BG FRACTION INSPIRED OXYGEN 100; BG HCO3 ACT 21.1 mmol/L (22.0-26.0); BG METHEMOGLOBIN 0.9 % (0.0-1.5); BG OXYGEN SATURATION 95.8 % (92.0-98.5); BG OXYHEMOGLOBIN 94.7 % (94.0-97.0); BG PCO2 33.4 mmHg (35.0-45.0); BG PH 7.419 (7.350-7.450); BG PO2 91.5 mmHg (75.0-100.0); BG SAMPLE SITE LEFT RADIAL; BG TOTAL HEMOGLOBIN 8.4 g/dL (12.0-18.0); BG VENT MODE MASK - NRB
[2022-10-10] MEDS ORDERED: CEFEPIME 2,000 MG in DEXT 5% WATER 100 ML IV SCH (11:30)
[2022-10-10] MEDS: DEXTROSE 5% WATER 1,000 ML IV SCH ×2 (11:40→23:37)
[2022-10-10] MEDS: INSULIN LISPRO 100 UNITS/ML SUBCUT SCH ×3 (11:40→21:00)
[2022-10-10 12:41] LABS: TOTAL IRON BINDING CAPACITY 207 ug/dL (250-450)
[2022-10-10 13:04] LABS: FOLIC ACID (FOLATE) SERUM >20 ng/mL ng/mL (>5.38); VITAMIN B12 SERUM 1764 pg/mL (211-911)
[2022-10-10 14:25] LABS: FERRITIN 849 ng/mL (22-322)
[2022-10-10] MEDS: ENOXAPARIN 40MG/0.4ML SYR SUBCUT SCH (15:55)
[2022-10-10] MEDS: CEFEPIME 2,000 MG in DEXT 5% WATER 100 ML IV SCH (19:00)
[2022-10-11] VITALS (9 sets, daily range): BP systolic 111–126; BP diastolic 72–94
[2022-10-11] MEDS: IPRATROPIUM/ALBUTEROL 0.5-3(2.5)MG/3ML NEB HHN SCH ×4 (01:47→20:48)
[2022-10-11] MEDS: DEXTROSE 5% WATER 1,000 ML IV SCH ×3 (02:36→17:44)
[2022-10-11] MEDS: CEFEPIME 2,000 MG in DEXT 5% WATER 100 ML IV SCH (02:37)
[2022-10-11 05:39] LABS: BASOPHILS % 0.2 % (0.0-2.0); EOSINOPHILS % 0.3 % (0.0-5.0); HEMATOCRIT. 27.2 % (42.0-52.0); HEMOGLOBIN. 8.4 g/dL (14.0-18.0); LYMPHOCYTES % 12.2 % (20.0-50.0); MEAN CORPUSCULAR HEMOGLOBIN 28.6 pg (28.0-32.0); MEAN CORPUSCULAR VOLUME 92.9 fL (80.0-94.0); MEAN PLATELET VOLUME 10.5 fl (7.4-10.4); MONOCYTES % 3.2 % (2.0-8.0); NEUTROPHILS % 84.1 % (40.0-76.0); PLATELET 141 x1000/uL (130-400); RED BLOOD CELL COUNT 2.92 mill/uL (4.7-6.1); RED CELL DISTRIBUTION WIDTH 16.9 % (11.6-14.6)
[2022-10-11] MEDS: GUAIFENESIN 200MG/10ML SUGAR FREE UDC PO SCH ×4 (06:00→17:44)
[2022-10-11 06:59] LABS: CHLORIDE 132 mEq/L (98-107)
[2022-10-11 07:06] LABS: CREATINE KINASE 569 IU/L (39-308)
[2022-10-11] MEDS: BLOOD SUGAR DIAGNOSTIC STRIP TEST SCH ×4 (07:14→21:00)
[2022-10-11] MEDS: INSULIN LISPRO 100 UNITS/ML SUBCUT SCH ×4 (07:19→21:00)
[2022-10-11] MEDS ORDERED: CEFEPIME 2,000 MG in DEXT 5% WATER 100 ML IV SCH (08:00)
[2022-10-11] MEDS: LEVETIRACETAM 500MG/5ML CUP GT SCH ×2 (09:30→17:44)
[2022-10-11] MEDS: BISACODYL 10MG SUPP PR SCH (09:30)
[2022-10-11] MEDS: PANTOPRAZOLE 40MG DR TABLET PO SCH ×3 (09:30→17:44)
[2022-10-11] MEDS: MORPHINE SULFATE 2 MG/ML CPJ (NOT FOR IM USE) IV PRN (09:41)
[2022-10-11] MEDS ORDERED: INSULIN GLARGINE 100 UNITS/ML SUBCUT SCH (10:00)
[2022-10-11] MEDS ORDERED: ENOXAPARIN 80MG/0.8ML SYR SUBCUT SCH (11:00)
[2022-10-11 12:17] LABS: INR 1.1; PROTHROMBIN TIME 11.8 sec (9.6-11.0)
[2022-10-11] MEDS: MEROPENEM 1,000 MG in SODIUM CHLORIDE 0.9% 100 ML IV SCH ×2 (13:13→17:44)
[2022-10-11] MEDS ORDERED: SODIUM HYPOCHLORITE 0.125% 473ML SOLUTION TOP PRN (18:00)
[2022-10-11 20:25] LABS: HEMATOCRIT 24.7 % (42.0-52.0); HEMOGLOBIN 7.7 g/dL (14.0-18.0); MEAN CORPUSCULAR HEMOGLOBIN 28.9 pg (28.0-32.0); MEAN CORPUSCULAR VOLUME 92.5 fL (80.0-94.0); PLATELET 128 x1000/uL (130-400); RED BLOOD CELL COUNT 2.67 mill/uL (4.7-6.1); RED CELL DISTRIBUTION WIDTH 16.2 % (11.6-14.6)
[2022-10-11] MEDS: ENOXAPARIN 80MG/0.8ML SYR SUBCUT SCH (22:56)
[2022-10-12] VITALS (11 sets, daily range): BP systolic 101–145; BP diastolic 61–101
[2022-10-12] MEDS: GUAIFENESIN 200MG/10ML SUGAR FREE UDC PO SCH ×4 (01:24→16:56)
[2022-10-12] MEDS: IPRATROPIUM/ALBUTEROL 0.5-3(2.5)MG/3ML NEB HHN SCH ×4 (02:12→20:36)
[2022-10-12 06:17] LABS: BASOPHILS % 0.2 % (0.0-2.0); EOSINOPHILS % 0.8 % (0.0-5.0); HEMATOCRIT. 25.7 % (42.0-52.0); LYMPHOCYTES % 10.7 % (20.0-50.0); MEAN CORPUSCULAR HEMOGLOBIN 28.7 pg (28.0-32.0); MEAN CORPUSCULAR VOLUME 91.8 fL (80.0-94.0); MEAN PLATELET VOLUME 10.3 fl (7.4-10.4); MONOCYTES % 2.6 % (2.0-8.0); NEUTROPHILS % 85.7 % (40.0-76.0); PLATELET 135 x1000/uL (130-400); RED CELL DISTRIBUTION WIDTH 16.3 % (11.6-14.6)
[2022-10-12] MEDS: MEROPENEM 1,000 MG in SODIUM CHLORIDE 0.9% 100 ML IV SCH ×3 (06:35→16:56)
[2022-10-12 06:56] LABS: CHLORIDE 122 mEq/L (98-107)
[2022-10-12 07:06] LABS: PHOSPHORUS 3.8 mg/dL (2.5-4.9)
[2022-10-12] MEDS: BLOOD SUGAR DIAGNOSTIC STRIP TEST SCH ×4 (07:24→21:38)
[2022-10-12] MEDS ORDERED: POTASSIUM CHLORIDE 20MEQ/PACKET PO NR (08:00)
[2022-10-12] MEDS: INSULIN LISPRO 100 UNITS/ML SUBCUT SCH ×4 (08:00→21:00)
[2022-10-12] MEDS: PANTOPRAZOLE 40MG DR TABLET PO SCH ×3 (09:45→16:56)
[2022-10-12] MEDS: LEVETIRACETAM 500MG/5ML CUP GT SCH ×2 (09:45→16:56)
[2022-10-12] MEDS: BISACODYL 10MG SUPP PR SCH (09:46)
[2022-10-12] MEDS: DEXTROSE 5% WATER 1,000 ML IV SCH (09:46)
[2022-10-12] MEDS: ASPIRIN 81MG TABLET PO SCH (09:46)
[2022-10-12] MEDS: ENOXAPARIN 80MG/0.8ML SYR SUBCUT SCH ×2 (10:13→22:19)
[2022-10-12] MEDS: MORPHINE SULFATE 2 MG/ML CPJ (NOT FOR IM USE) IV PRN ×2 (10:16→22:19)
[2022-10-12] MEDS: INSULIN GLARGINE 100 UNITS/ML SUBCUT SCH (22:20)
[2022-10-13] VITALS (11 sets, daily range): BP systolic 97–129; BP diastolic 65–93
[2022-10-13] MEDS: GUAIFENESIN 200MG/10ML SUGAR FREE UDC PO SCH ×4 (01:15→18:07)
[2022-10-13] MEDS: IPRATROPIUM/ALBUTEROL 0.5-3(2.5)MG/3ML NEB HHN SCH ×3 (01:57→13:53)
[2022-10-13] MEDS: MEROPENEM 1,000 MG in SODIUM CHLORIDE 0.9% 100 ML IV SCH ×2 (04:21→11:02)
[2022-10-13 05:45] LABS: BASOPHILS % 0.4 % (0.0-2.0); EOSINOPHILS % 1.3 % (0.0-5.0); HEMATOCRIT. 26.4 % (42.0-52.0); HEMOGLOBIN. 8.1 g/dL (14.0-18.0); LYMPHOCYTES % 13.4 % (20.0-50.0); MEAN CORPUSCULAR HEMOGLOBIN 28.9 pg (28.0-32.0); MEAN CORPUSCULAR VOLUME 93.8 fL (80.0-94.0); MEAN PLATELET VOLUME 9.6 fl (7.4-10.4); MONOCYTES % 4.5 % (2.0-8.0); NEUTROPHILS % 80.4 % (40.0-76.0); PLATELET 138 x1000/uL (130-400); RED BLOOD CELL COUNT 2.81 mill/uL (4.7-6.1); RED CELL DISTRIBUTION WIDTH 16.1 % (11.6-14.6)
[2022-10-13 05:59] LABS: CHLORIDE 123 mEq/L (98-107)
[2022-10-13] MEDS ORDERED: LANSOPRAZOLE 30MG DR CAPSULE GT SCH (07:30)
[2022-10-13] MEDS: BLOOD SUGAR DIAGNOSTIC STRIP TEST SCH ×3 (08:26→17:55)
[2022-10-13] MEDS: INSULIN LISPRO 100 UNITS/ML SUBCUT SCH ×3 (08:47→17:56)
[2022-10-13] MEDS: ASPIRIN 81MG TABLET PO SCH (09:47)
[2022-10-13] MEDS: BISACODYL 10MG SUPP PR SCH (09:47)
[2022-10-13] MEDS: LEVETIRACETAM 500MG/5ML CUP GT SCH ×2 (09:47→18:07)
[2022-10-13] MEDS: INSULIN GLARGINE 100 UNITS/ML SUBCUT SCH (11:01)
[2022-10-13] MEDS: ENOXAPARIN 80MG/0.8ML SYR SUBCUT SCH (11:01)
[2022-10-13 13:23] LABS: BG BASE EXCESS -1.1 mmol/L (-2.0-2.0); BG HCO3 ACT 22.3 mmol/L (22.0-26.0); BG METHEMOGLOBIN 0.2 % (0.0-1.5); BG OXYHEMOGLOBIN 93.8 % (94.0-97.0); BG PCO2 31.7 mmHg (35.0-45.0); BG PH 7.465 (7.350-7.450); BG PO2 68.3 mmHg (75.0-100.0); BG SAMPLE SITE RIGHT RADIAL; BG TOTAL HEMOGLOBIN 8.6 g/dL (12.0-18.0); BG VENT MODE MASK - SIMPLE
[2022-10-13] MEDS ORDERED: INSULIN GLARGINE 100 UNITS/ML SUBCUT SCH (22:00)
== END 2022-10-13 21:07 | DRG 853 ==
LOC: ER 12:12 → MICUSO 15:13 → EDBEDREQ 15:16 → EDBEDREQTM 15:16 → EDBEDREQSVC 10-10 15:53 → 5EST 10-11 01:06
PROVIDERS: ADMIT Family Medicine Adult Medicine; ATTEND Family Medicine Adult Medicine
PROC: 0KBP0ZZ Excision of Left Hip Muscle, Open Approach (ICD-10-PCS; principal; 2022-10-13)
PROC: 0KBN0ZZ Excision of Right Hip Muscle, Open Approach (ICD-10-PCS; 2022-10-13)
DX: A41.51 Sepsis due to Escherichia coli [E. coli] (principal); E43 Unspecified severe protein-calorie malnutrition; L89.154 Pressure ulcer of sacral region, stage 4; G82.50 Quadriplegia, unspecified; J18.9 Pneumonia, unspecified organism; J96.21 Acute and chronic respiratory failure with hypoxia; E87.0 Hyperosmolality and hypernatremia; G93.40 Encephalopathy, unspecified; I50.32 Chronic diastolic (congestive) heart failure; M62.82 Rhabdomyolysis; N17.9 Acute kidney failure, unspecified; I82.413 Acute embolism and thrombosis of femoral vein, bilateral; D53.9 Nutritional anemia, unspecified; E11.65 Type 2 diabetes mellitus with hyperglycemia; E78.1 Pure hyperglyceridemia; E78.5 Hyperlipidemia, unspecified; E86.0 Dehydration; E86.1 Hypovolemia; I11.0 Hypertensive heart disease with heart failure; Z20.822 Contact with and (suspected) exposure to COVID-19; R13.10 Dysphagia, unspecified; K21.9 Gastro-esophageal reflux disease without esophagitis; R74.01 Elevation of levels of liver transaminase levels; Z79.84 Long term (current) use of oral hypoglycemic drugs; Z86.73 Personal history of transient ischemic attack (TIA), and cerebral infarction without residual deficits; Z74.01 Bed confinement status; Z86.718 Personal history of other venous thrombosis and embolism; Z93.1 Gastrostomy status; Z79.82 Long term (current) use of aspirin; Z79.899 Other long term (current) drug therapy; Z86.711 Personal history of pulmonary embolism; Z79.4 Long term (current) use of insulin; Z68.27 Body mass index [BMI] 27.0-27.9, adult
CPT/HCPCS: 36415; 36600; 71045; 80048; 80053; 80061; 82040; 82375; 82550; 82607; 82728; 82746; 82805; 82962; 83036; 83540; 83550; 83735; 83880; 84100; 84134; 84145; 84443; 84484; 85025; 85027; 85379; 87076; 87077; 87186; 87426; 93005; 93306; 93970; 94640; 97167; 99291; C9803; J0692; J1650; J1815; J2185; J2270; J2543; J3370; J7050; J7060